=== PATIENT | female | born 1945 | race Caucasian/White ===

== ENCOUNTER 2022-03-26 18:25 | Emergency (ER) | payer MEDICARE ==
[2022-03-26 19:50] VITALS: O2SAT 97
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
[2022-03-26 21:04] VITALS: BP 147/87; PULSE 74
== END 2022-03-26 21:03 | disposition home or self-care (01) ==
LOC: ED 18:25
DX: K94.19 Other complications of enterostomy (principal); R21 Rash and other nonspecific skin eruption; E78.5 Hyperlipidemia, unspecified; I10 Essential (primary) hypertension; Z28.310 Unvaccinated for COVID-19
CPT/HCPCS: 99282

== ENCOUNTER 2022-03-27 19:08 | Emergency (ER) | payer MEDICARE ==
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
[2022-03-27] MEDS ORDERED: KEFLEX 500 MG PO ONE (20:21)
[2022-03-27] MEDS ORDERED: KEFLEX 500 MG ONE (20:40)
[2022-03-27 21:05] VITALS: BP 142/76; PULSE 89; O2SAT 94
== END 2022-03-27 21:09 | disposition home or self-care (01) ==
LOC: ED 19:08
DX: K94.09 Other complications of colostomy (principal); L30.8 Other specified dermatitis; E78.5 Hyperlipidemia, unspecified; I10 Essential (primary) hypertension; Z28.310 Unvaccinated for COVID-19
CPT/HCPCS: 99282; A9270-GY

== ENCOUNTER 2022-07-10 17:37 | Emergency (ER) | payer MEDICARE ==
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
[2022-07-10 19:22] VITALS: BP 155/129; PULSE 87; O2SAT 96
[2022-07-10] MEDS ORDERED: ENOXAPARIN SODIUM SQ STA (19:32)
[2022-07-10] MEDS ORDERED: ROCEPHIN 1 Gm-D5w 50 ml Bag** 1 G/50 ML IVPB IV STA (19:32)
[2022-07-10] MEDS ORDERED: ENOXAPARIN SODIUM SQ ONE (19:40)
[2022-07-10] MEDS ORDERED: ROCEPHIN 1 Gm-D5w 50 ml Bag** 1 G/50 ML IVPB IV ONE (19:40)
[2022-07-10 20:06] LABS: Absolute Neutrophil Ct (ANC) 2.74 x10^3/uL (1.4-6.9); BASOPHIL % 0.5 % (0.0-0.4); Basophil (Absolute #) 0.02 x10^3/uL (0-0.4); Eosinophil % 2.3 % (0.00-5.0); Eosinophil (Absolute #) 0.09 x10^3/uL (0-0.5); Hematocrit 33.5 % (35-47); Hemoglobin 10.3 g/dL (12.0-16.0); IMMATURE GRAN # 0.01 x10^3u/L (0.00-0.03); IMMATURE GRAN % 0.3 % (0.00-0.4); Lymphocyte (Absolute #) 0.57 x10^3/uL (1.0-4.6); Lymphocytes % 14.8 % (24.0-44.0); Mean Cell Volume 90.1 fL (78-100); Mean Corpuscular Hemoglobin 27.7 pg (26-32); Mean Corpuscular Hgb Concent. 30.7 g/dL (32-36); Mean Platelet Volume 10.8 fL (7.5-11.0); Monocyte (Absolute #) 0.43 x10^3/uL (0.0-1.3); Monocytes % 11.1 % (0.0-12.0); Platelet Count 226 x10^3/uL (150-450); Red Blood Count 3.72 x10^6/uL (4.1-5.4); Red Cell Distribution Width 14.6 % (11.5-14.0); White Blood Count 3.9 x10^3/uL (4.0-10.5)
[2022-07-10 20:22] LABS: INR 0.89 (0.8-3.0); PROTIME 9.8 SECONDS (9.4-12.5)
[2022-07-10 20:23] LABS: ANION GAP 13.5 MEQ/L (5-15); BILIRUBIN,TOTAL 0.3 mg/dL (0.2-1.3); Calcium 8.7 mg/dL (8.4-10.2); Creatinine 1 1.04 mg/dL (0.52-1.04); EST GLOMERULAR FILTRATION RATE 54.8 ML/MIN; Total Protein 7.4 g/dL (6.3-8.2)
[2022-07-10 21:59] LABS: Slide Review 1 YES
--- NOTE | 2022-07-11 09:11 | XRAY ---
Indication: Swelling, left greater than right. Two-dimensional sonogram and color Doppler imaging of the major venous vessels of left and right leg performed. Comparison: None Left leg demonstrates nonoccluding thrombi in the mid to distal femoral and popliteal veins. Remaining left and right leg deep venous vessels are negative for thrombosis including greater saphenous veins. Patent veins demonstrate normal compressibility and normal venous waveforms. Impression: Nonoccluding DVT left femoral and popliteal veins. Right leg negative for DVT. Comment: Preliminary report was given.
== END 2022-07-10 20:57 | disposition home or self-care (01) ==
LOC: ED 17:37
DX: I82.412 Acute embolism and thrombosis of left femoral vein (principal); L03.116 Cellulitis of left lower limb; L03.115 Cellulitis of right lower limb; R60.0 Localized edema; E78.5 Hyperlipidemia, unspecified; I10 Essential (primary) hypertension; Z79.891 Long term (current) use of opiate analgesic; Z79.01 Long term (current) use of anticoagulants; Z79.899 Other long term (current) drug therapy; Z28.310 Unvaccinated for COVID-19
CPT/HCPCS: 36000; 36415; 80053; 83605; 85025; 85610; 87040; 93970; 96365; 96372; 99284; J0696; J1650

== ENCOUNTER 2023-02-22 00:54 | Emergency (ER) | payer MEDICARE ==
[2023-02-22 01:12] VITALS: RESP 18; TEMP 98.4
[2023-02-22] MEDS ORDERED: NORCO 5/325 MG PO ONE (01:16)
[2023-02-22] MEDS ORDERED: NORCO 5/325 MG ONE (01:26)
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
[2023-02-22 03:05] VITALS: BP 116/74; PULSE 71; O2SAT 98
--- NOTE | 2023-02-22 08:45 | XRAY ---
Indication: Pain. No known injury. Comparison: None 2 view right femur demonstrates osteopenia, moderate hip/knee degenerative arthropathy, moderate degenerative changes visualized lower lumbar spine, right lower quadrant colostomy, and heavy scattered vascular calcifications. No other bony, articular, or soft tissue abnormalities.
--- NOTE | 2023-02-22 08:45 | XRAY ---
Indication: Pain. No known injury. Comparison: None 3 view right knee demonstrates osteopenia, mild/moderate tricompartmental degenerative changes greatest patellofemoral compartment, small quadriceps tendon ossifications either degenerative versus old injury/inflammation, small posterior fabella, and moderate scattered vascular calcifications. No other bony, articular, or soft tissue abnormalities.
--- NOTE | 2023-02-22 08:46 | XRAY ---
Indication: Pain. No known injury. Comparison: None 2 view right lower leg demonstrates osteopenia, mild/moderate knee degenerative arthropathy, small plantar heel spur, and scattered vascular calcifications. No other bony, articular, or soft tissue abnormalities.
== END 2023-02-22 03:05 | disposition home or self-care (01) ==
LOC: ED 00:54
DX: M17.11 Unilateral primary osteoarthritis, right knee (principal); M25.561 Pain in right knee; E78.5 Hyperlipidemia, unspecified; I10 Essential (primary) hypertension; Z79.891 Long term (current) use of opiate analgesic; Z79.01 Long term (current) use of anticoagulants; Z79.899 Other long term (current) drug therapy; Z28.310 Unvaccinated for COVID-19
CPT/HCPCS: 73552; 73562; 73590; 99283; A9270-GY

== ENCOUNTER 2023-06-16 06:56 | Observation (INO) | payer MEDICARE ==
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
[2023-06-16 07:28] LABS: Absolute Neutrophil Ct (ANC) 4.11 x10^3/uL (1.4-6.9); BASOPHIL % 0.5 % (0.0-0.4); Basophil (Absolute #) 0.03 x10^3/uL (0-0.4); Eosinophil % 2.5 % (0.00-5.0); Eosinophil (Absolute #) 0.14 x10^3/uL (0-0.5); Hematocrit 32.8 % (35-47); Hemoglobin 9.5 g/dL (12.0-16.0); IMMATURE GRAN # 0.02 x10^3u/L (0.00-0.03); IMMATURE GRAN % 0.4 % (0.00-0.4); Lymphocyte (Absolute #) 0.72 x10^3/uL (1.0-4.6); Mean Cell Volume 92.7 fL (78-100); Mean Corpuscular Hemoglobin 26.8 pg (26-32); Mean Platelet Volume 11.3 fL (7.5-11.0); Monocyte (Absolute #) 0.53 x10^3/uL (0.0-1.3); Monocytes % 9.5 % (0.0-12.0); Neutrophil % 74.1 % (36.0-66.0); Platelet Count 160 x10^3/uL (150-450); Red Blood Count 3.54 x10^6/uL (4.1-5.4); Red Cell Distribution Width 13.4 % (11.5-14.0); White Blood Count 5.6 x10^3/uL (4.0-10.5)
[2023-06-16 07:51] LABS: ALBUMIN 4.3 g/dL (3.5-5.0); BILIRUBIN,TOTAL 0.6 mg/dL (0.2-1.3); Calcium 9.2 mg/dL (8.4-10.2); Creatinine 1 1.45 mg/dL (0.52-1.04); EST GLOMERULAR FILTRATION RATE 37.2 ML/MIN; Potassium 4.3 mmol/L (3.5-5.1)
--- NOTE | 2023-06-16 08:42 | XRAY ---
Indication: Short of breath and headache. Comparison: None Portable apical lordotic chest underinflated and clear with incidental tiny right base calcified granuloma. Heart enlarged with tortuous descending aorta and left dual-lead pacemaker. Bony thorax intact with osteopenia and mild degenerative changes. Impression: Nonacute underinflated chest with cardiomegaly and old granulomatous disease. Negative for acute pneumonic process or CHF.
[2023-06-16 10:59] LABS: Appearance Clear (Clear); Bacteria None Seen /HPF (None Seen); Bilirubin Negative (Negative); Blood Negative (Negative); Epithelial Cells None Seen /HPF (None Seen); Glucose, Urine Negative (Negative); Ketones Negative (Negative); Leukocyte Esterase Negative (Negative); Nitrite Negative (Negative); Protein,Urine Dip Negative (Negative); RBC 0-2 /HPF (0-5); Urobilinogen 0.2 mg/dL (0.2); WBC 0-2 /HPF (0-5)
[2023-06-16 11:03] LABS: ADD URINE CULTURE? NO (NO)
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
[2023-06-16 13:57] LABS: RETICULOCYTE % 1.8 % (0.6-2.6); RETICULOCYTE HEMOGLOBIN 26.4 pg (28-38)
[2023-06-16 14:14] LABS: Iron 46 ug/dL (37-170); Iron Saturation 10 % (20-39); TIBC 451 ug/dL (265-462)
[2023-06-16] MEDS ORDERED: Lomotil PO PRN (14:16)
[2023-06-16] MEDS: REQUIP 2MG TAB PO SCH (15:10)
[2023-06-16] MEDS: Dilaudid 4 MG Tab PO SCH (15:11)
[2023-06-16] MEDS: Neurontin PO SCH (15:12)
[2023-06-16] MEDS: Toprol-Xl 25MG Tablets PO SCH (15:13)
[2023-06-16] MEDS: SYNTHROID 75 MCG PO SCH (15:14)
[2023-06-16] MEDS: Protonix 40MG Tablet PO SCH (15:16)
[2023-06-16] MEDS: Imdur 30 MG PO SCH (15:16)
[2023-06-16] MEDS: AMITRIPTYLINE 25 MG TABLET PO SCH (15:16)
[2023-06-16] MEDS: MYRBETRIQ PO SCH (15:17)
[2023-06-16] MEDS: Lasix 40 MG PO SCH (15:17)
[2023-06-16] MEDS: Flonase NASAL NS SCH (15:22)
[2023-06-16] MEDS: Klor Con PO SCH (15:22)
[2023-06-16] MEDS: ROCEPHIN 1 GM / 100 ML NaCl 1 GM/100 ML IVPB IV SCH (15:23)
--- NOTE | 2023-06-16 15:25 | XRAY ---
Indication: Cellulitis. Elevated d-dimer. Two-dimensional sonogram and color Doppler imaging major venous vessels left and right leg performed. Comparison: July 10, 2022 Previous left leg DVT has cleared. No thrombus seen in the examined deep venous vessels of the left and right leg including greater saphenous vein. Veins demonstrate normal compressibility. Venous waveforms are normal with and without augmentation. Impression: Left and right legs negative for DVT.
[2023-06-16] MEDS: ceLEXa 20 MG PO SCH ×2 (16:48→21:04)
[2023-06-16] MEDS: XARELTO 10 MG TABLET PO SCH (18:48)
[2023-06-16 19:30] LABS: Ferritin 12.6 ng/mL (11.1-264); Folate (Folic Acid) 8.62 ng/mL (2.76 - >20)
[2023-06-16] MEDS: Zocor 10MG PO SCH (21:04)
[2023-06-16] MEDS: Pepcid 20 MG PO SCH (21:04)
[2023-06-17 05:45] LABS: Hematocrit 31.7 % (35-47); Hemoglobin 9.3 g/dL (12.0-16.0); Mean Cell Volume 92.2 fL (78-100); Mean Corpuscular Hgb Concent. 29.3 g/dL (32-36); Mean Platelet Volume 10.9 fL (7.5-11.0); Platelet Count 168 x10^3/uL (150-450); Red Blood Count 3.44 x10^6/uL (4.1-5.4); Red Cell Distribution Width 13.7 % (11.5-14.0); White Blood Count 5.2 x10^3/uL (4.0-10.5)
[2023-06-17 05:56] LABS: ALBUMIN 4.1 g/dL (3.5-5.0); BILIRUBIN,TOTAL 0.5 mg/dL (0.2-1.3); Creatinine 1 1.24 mg/dL (0.52-1.04); EST GLOMERULAR FILTRATION RATE 44.8 ML/MIN; Potassium 4.5 mmol/L (3.5-5.1); Total Protein 7.6 g/dL (6.3-8.2)
[2023-06-17] MEDS: FEOSOL 325 MG PO SCH (10:43)
[2023-06-17] MEDS: TYLENOL 325 MG PO PRN (11:16)
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
[2023-06-17] MEDS: Cyanocobalamin B-12 1000 MCG/ML IM SCH (14:28)
[2023-06-18 05:28] LABS: Hematocrit 30.8 % (35-47); Hemoglobin 8.8 g/dL (12.0-16.0); Mean Cell Volume 93.6 fL (78-100); Mean Corpuscular Hemoglobin 26.7 pg (26-32); Mean Corpuscular Hgb Concent. 28.6 g/dL (32-36); Mean Platelet Volume 11.9 fL (7.5-11.0); Platelet Count 160 x10^3/uL (150-450); Red Blood Count 3.29 x10^6/uL (4.1-5.4); Red Cell Distribution Width 13.9 % (11.5-14.0); White Blood Count 6.1 x10^3/uL (4.0-10.5)
[2023-06-18 05:55] LABS: ANION GAP 9.7 MEQ/L (5-15); BILIRUBIN,TOTAL 0.3 mg/dL (0.2-1.3); Calcium 8.6 mg/dL (8.4-10.2); Creatinine 1 1.21 mg/dL (0.52-1.04); EST GLOMERULAR FILTRATION RATE 46.2 ML/MIN; Potassium 4.1 mmol/L (3.5-5.1); Total Protein 7.4 g/dL (6.3-8.2)
[2023-06-18 07:52] VITALS: O2SAT 98
[2023-06-18 07:53] LABS: Slide Review YES
[2023-06-18 12:00] VITALS: BP 125/88; PULSE 88; RESP 17; TEMP 97.5
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
--- NOTE | 2023-06-19 14:08 | ECHO ---
DATE OF PROCEDURE: 06/16/2023 CLINICAL INFORMATION: Chest pain. The M-mode 2D, and Doppler echocardiogram including color flow Doppler is technically difficult. The heart rate is 83 beats/minute. The left ventricle is mildly dilated. The wall thickness is at the upper limits of normal. There is normal contractility of the left ventricle. The ejection fraction is estimated to be 55 to 60%. The right ventricle is grossly normal. The left atrium is borderline dilated. The interatrial septum is intact. The right atrium is normal. The aortic valve is not well visualized. The mitral valve is normal. The tricuspid valve is normal. The pulmonic valve is not well visualized. The aortic root is normal. There is no pericardial effusion present. IMPRESSION: 1) NORMAL CONTRACTILITY OF THE LEFT VENTRICLE. 2) BORDERLINE CONCENTRIC LEFT VENTRICULAR HYPERTROPHY. 3) BORDERLINE LEFT ATRIAL DILATATION.
== END 2023-06-18 15:10 | disposition home or self-care (01) ==
LOC: ED 06:56 → MED SURG 13:00
PROVIDERS: ADMIT Internal Medicine; ATTEND Internal Medicine
DX: R07.9 Chest pain, unspecified (principal); I12.9 Hypertensive chronic kidney disease with stage 1 through stage 4 chronic kidney disease, or unspecified chronic kidney disease; N18.9 Chronic kidney disease, unspecified; I50.9 Heart failure, unspecified; N17.9 Acute kidney failure, unspecified; L03.115 Cellulitis of right lower limb; L03.116 Cellulitis of left lower limb; D64.9 Anemia, unspecified; E78.5 Hyperlipidemia, unspecified; E03.9 Hypothyroidism, unspecified; G25.81 Restless legs syndrome; I69.30 Unspecified sequelae of cerebral infarction; F32.A Depression, unspecified; I25.10 Atherosclerotic heart disease of native coronary artery without angina pectoris; E66.01 Morbid (severe) obesity due to excess calories; Z68.41 Body mass index [BMI] 40.0-44.9, adult; D50.9 Iron deficiency anemia, unspecified; D51.9 Vitamin B12 deficiency anemia, unspecified; R60.0 Localized edema; Z79.01 Long term (current) use of anticoagulants; Z79.899 Other long term (current) drug therapy; Z20.828 Contact with and (suspected) exposure to other viral communicable diseases
CPT/HCPCS: 29580; 36000; 36415; 71045; 80053; 81001; 82607; 82728; 82746; 83540; 83550; 83880; 84484; 85025; 85027; 85045; 85046; 85379; 87040; 93005; 93041; 93268; 93306; 93970; 94760; 97161; 99285; G0378; Q3014; J0696; J3420; A9270-GY

== ENCOUNTER 2023-10-26 11:21 | Emergency (ER) | payer MEDICARE ==
[2023-10-26 11:51] VITALS: TEMP 97
[2023-10-26 12:10] LABS: Absolute Neutrophil Ct (ANC) 3.35 x10^3/uL (1.56-6.13); BASOPHIL % 0.6 % (0.1-1.2); Basophil (Absolute #) 0.03 x10^3/uL (0.01-0.08); Eosinophil % 2.4 % (0.7-5.8); Eosinophil (Absolute #) 0.11 x10^3/uL (0.04-0.36); Hematocrit 33.6 % (34.1-44.9); Hemoglobin 9.4 g/dL (11.2-15.7); IMMATURE GRAN # 0.06 x10^3u/L (0.001-0.031); IMMATURE GRAN % 1.3 % (0.001-0.429); Lymphocyte (Absolute #) 0.54 x10^3/uL (1.18-3.74); Lymphocytes % 11.7 % (19.3-51.7); Mean Cell Volume 87.5 fL (79.4-94.8); Mean Corpuscular Hemoglobin 24.5 pg (25.6-32.2); Mean Platelet Volume 10.8 fL (9.4-12.3); Monocyte (Absolute #) 0.53 x10^3/uL (0.24-0.86); Monocytes % 11.5 % (4.7-12.5); NUCLEATED RBC # 0.02 x10^3u/L (0.00-0.012); NUCLEATED RBC % 0.4 % (0.00-0.2); Neutrophil % 72.5 % (34.0-71.1); Platelet Count 124 x10^3/uL (182-369); Red Blood Count 3.84 x10^6/uL (3.93-5.22); Red Cell Distribution Width 19.1 % (11.7-14.4); White Blood Count 4.6 x10^3/uL (3.98-10.04)
[2023-10-26 12:23] LABS: ALBUMIN 3.9 g/dL (3.5-5.0); BILIRUBIN,TOTAL 0.4 mg/dL (0.2-1.3); Creatinine 1 2.66 mg/dL (0.52-1.04); EST GLOMERULAR FILTRATION RATE 17.9 ML/MIN; Potassium 4.5 mmol/L (3.5-5.1); Total Protein 7.8 g/dL (6.3-8.2)
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
[2023-10-26 12:26] LABS: PROTIME 10.9 SECONDS (9.4-12.5)
--- NOTE | 2023-10-26 12:54 | XRAY ---
Indication: Lethargy. Comparison: June 16, 2023 Portable chest again demonstrates normal heart and lungs with incidental left pacemaker. Bony thorax intact again with osteopenia and mild degenerative changes. No new/acute findings.
[2023-10-26 13:04] LABS: Appearance CLEAR (CLEAR); Bilirubin NEGATIVE (NEGATIVE); Glucose NEGATIVE (NEGATIVE)
[2023-10-26 13:05] LABS: ADD URINE CULTURE? ORDERED SEPARATELY (NO); Ketones NEGATIVE (NEGATIVE); Nitrite NEGATIVE (NEGATIVE); Protein,Urine Dip NEGATIVE (Negative); RBC SMALL Ery/ul (0-5); Urobilinogen 0.2 mg/dL (0-1)
[2023-10-26 13:28] VITALS: RESP 15
[2023-10-26 13:28] LABS: Bacteria Few /HPF (None Seen); Epithelial Cells Few /HPF (None Seen); RBC 0-2 /HPF (0-5)
[2023-10-26] MEDS ORDERED: Sodium Chloride 0.9% 1000 ML 1,000 ML ONE (13:43)
[2023-10-26 13:44] LABS: Slide Review 1 YES
[2023-10-26] MEDS: Sodium Chloride 0.9% 1000 ML 1,000 ML IV STA (13:45)
[2023-10-26 14:34] VITALS: BP 111/56; PULSE 80
[2023-10-26 15:08] VITALS: O2SAT 95
== END 2023-10-26 15:23 | disposition home or self-care (01) ==
LOC: ED 11:21
DX: E86.0 Dehydration (principal); R53.83 Other fatigue; R40.0 Somnolence; E78.5 Hyperlipidemia, unspecified; I11.0 Hypertensive heart disease with heart failure; I50.9 Heart failure, unspecified; Z79.899 Other long term (current) drug therapy
CPT/HCPCS: 36415; 71045; 80053; 81015; 83605; 83880; 84439; 84443; 84484; 85025; 85610; 85730; 87077; 87086; 87186; 96360; 99284

== ENCOUNTER 2023-12-13 12:34 | Observation (INO) | payer MEDICARE, OTHER ==
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
[2023-12-13] MEDS ORDERED: Sterile H2O 10 ml IJ ONE (12:45)
[2023-12-13] MEDS ORDERED: solu-MEDROL ONE (12:46)
[2023-12-13 12:51] LABS: Absolute Neutrophil Ct (ANC) 3.39 x10^3/uL (1.56-6.13); BASOPHIL % 0.9 % (0.1-1.2); Basophil (Absolute #) 0.04 x10^3/uL (0.01-0.08); Eosinophil % 2.6 % (0.7-5.8); Eosinophil (Absolute #) 0.12 x10^3/uL (0.04-0.36); Hemoglobin 7.4 g/dL (11.2-15.7); IMMATURE GRAN # 0.02 x10^3u/L (0.001-0.031); IMMATURE GRAN % 0.4 % (0.001-0.429); Lymphocyte (Absolute #) 0.77 x10^3/uL (1.18-3.74); Lymphocytes % 16.7 % (19.3-51.7); Mean Cell Volume 88.8 fL (79.4-94.8); Mean Corpuscular Hemoglobin 24.3 pg (25.6-32.2); Mean Corpuscular Hgb Concent. 27.4 g/dL (32.2-35.5); Mean Platelet Volume 11.8 fL (9.4-12.3); Monocyte (Absolute #) 0.28 x10^3/uL (0.24-0.86); Monocytes % 6.1 % (4.7-12.5); Neutrophil % 73.3 % (34.0-71.1); Platelet Count 249 x10^3/uL (182-369); Red Blood Count 3.04 x10^6/uL (3.93-5.22); Red Cell Distribution Width 17.2 % (11.7-14.4); White Blood Count 4.6 x10^3/uL (3.98-10.04)
[2023-12-13] MEDS ORDERED: DUONEB 0.5-3 MG/3 ml Neb IH ONE ×2 (12:59→20:04)
[2023-12-13] MEDS: solu-MEDROL 125 MG, Sterile H2O 10 ml 2 ML IV ONE (13:02)
[2023-12-13] MEDS: DUONEB 0.5-3 MG/3 ml Neb IH ONE (13:13)
[2023-12-13 13:20] LABS: ALBUMIN 3.5 g/dL (3.5-5.0); ANION GAP 13.1 MEQ/L (5-15); BILIRUBIN,TOTAL 0.2 mg/dL (0.2-1.3); Calcium 8.8 mg/dL (8.4-10.2); Creatinine 1 2.54 mg/dL (0.52-1.04); MAGNESIUM 2.1 mg/dL (1.6-2.3); Potassium 5.2 mmol/L (3.5-5.1); Total Protein 6.6 g/dL (6.3-8.2)
[2023-12-13 13:22] LABS: NT PRO BNPII 444 pg/mL (<300); TROPONIN < 0.012 ng/mL (0.000-0.033)
[2023-12-13 13:23] LABS: VBG BASE EXCESS -4.2 (-2.0-2.0); VBG CARBOXYHEMOGLOBIN 1.7 % T HGB (0.0-6.9); VBG HCO3- 22.1 meq/L (22-28); VBG O2 SATURATION 49.8 (95-100); VBG POTASSIUM 4.9 (3.5-5.1); VBG pH 7.29 (7.32-7.42)
[2023-12-13 13:24] LABS: VBG HEMOGLOBIN 7.5
--- NOTE | 2023-12-13 13:27 | XRAY ---
CLINICAL HISTORY: headache, LUE tingling COMPARISON: TECHNIQUE: An axial non-contrast CT scan of the brain was performed from the skull base to the high parietal region. One of the following dose reduction techniques was utilized for this exam: Automated exposure control, adjustment of the mA and kV according to patient size, and use of iterative reconstruction. CTDI: 53.9 , DLP: 1070 mGy.cm FINDINGS: Brain Parenchyma: Chronic/lacunar infarcts were seen in the capsuloganglionic region on both sides, the left thalamic region, and the head of the caudate nucleus on the right side. Age-matched cerebral atrophic changes as evidenced by the prominence of the cortical sulcal and gyral pattern. Periventricular white matter hypodensities in keeping with chronic microvascular ischemic changes. Atheromatous calcifications of internal carotid arteries on both sides at cavernous segments and vertebral arteries Ventricular System: Ventricles are normal in size and configuration. No evidence of hydrocephalus or ventricular enlargement. Subarachnoid Spaces: No evidence of subarachnoid hemorrhage or extra-axial fluid collections. Cerebellum and Brainstem: Normal size and signal. No masses, lesions, or areas of abnormal signal. Orbits: Normal appearance of the globes, optic nerves, and extraocular muscles. No evidence of orbital masses or abnormal signals. Sinuses: Clear paranasal sinuses. No evidence of sinusitis or mucosal thickening. Deviated nasal septum towards right side Mastoid Air Cells: Clear mastoid air cells. No evidence of mastoiditis. Skull and Meninges: Normal skull morphology. No evidence of meningeal thickening. IMPRESSION: Chronic/lacunar infarcts were seen in the capsuloganglionic region on both sides, the left thalamic region, and the region of the head of the caudate nucleus on the right side. Age-matched cerebral atrophic and chronic microvascular ischemic changes. No acute hemorrhagic pathology. Early changes of acute ischemic infarct may sometimes not be detected on a CT scan. If clinically needed, MRI with diffusion-weighted imaging is recommended for further evaluation. Electronically Signed by: Carlito Neri MD. (12/13/2023 13:23:00 EDT)
[2023-12-13] MEDS ORDERED: Lasix 40 MG/4 ML ONE (13:30)
[2023-12-13] MEDS: Lasix 40 MG/4 ML IV ONE (13:31)
[2023-12-13 14:28] LABS: ABO TYPING A; Antibody Screen NEGATIVE (NEGATIVE); RH TYPING POSITIVE
[2023-12-13 14:30] LABS: CROSS MATCH (PRBC) COMPATIBLE (COMPATIBLE)
[2023-12-13] MEDS ORDERED: Sodium Chloride 0.9% 250 ML 250 ML IV ONE (14:46)
[2023-12-13] MEDS ORDERED: BENADRYL 50 MG/ML ONE (14:55)
--- NOTE | 2023-12-13 14:57 | XRAY ---
CLINICAL HISTORY: chest pain, sob COMPARISON: None. TECHNIQUE: Contiguous axial CT images of the chest were acquired without administration of intravenous contrast. Coronal and sagittal reconstructions were obtained. One of the following dose reduction techniques were utilized for this exam: Automated exposure control, adjustment of the mA and/or kV according to patient size, use of iterative reconstruction. FINDINGS: Lungs: No evidence of pulmonary mass, consolidation, or collapse. Calcified nodule seen in the right lower lobe measuring about 4 mm No evidence of interstitial lung disease or emphysema. Few pulmonary air cysts seen in the right upper lobe. Prominence of pulmonary vasculature mainly in lower lobes probably due to pulmonary vascular congestion. Ground glass attenuation seen in both lower lobes. Interlobular septal thickening seen probably related to evolving interstitial edema. Bilateral small pleural effusion, more on left side Mediastinum: The mediastinum is normal in size and contour. No mediastinal mass or abnormal lymphadenopathy. Mild cardiomegaly. Coronary artery calcifications noted. The ascending aorta is mildly dilated with a maximum diameter measuring about 42 mm. Calcification of the aortic arch and thoracic aorta noted Hilar Structures: The hilar structures appear normal without enlargement or abnormality. Trachea and Main Bronchi: The trachea and main bronchi are patent without evidence of obstruction or abnormality. Thyroid: Suggestion of enlarged thyroid lobes showing hypodense nodules. Needs ultrasound correlation Chest Wall: The chest wall is unremarkable with no evidence of soft tissue or bony abnormalities. Upper Abdomen: Multiple Right renal cysts. Tiny calcific foci in the spleen representing calcified granulomas Bones: Multilevel spondylodegenerative changes seen in the visualized spine, no evidence of fracture or lytic/sclerotic lesions.Degenerative changes seen in the visualized left glenohumeral joint IMPRESSION: 1. No pulmonary mass, major collapse or consolidative changes. 2. Mild cardiomegaly with pulmonary vascular congestion. Clinical correlation is suggested. 3. Interlobular septal thickening in lower lobes probably related to evolving interstitial edema. 4. Suggestion of bilateral small pleural effusion, more on left side. 5. The ascending aorta is mildly dilated with maximum diameter measuring about 42 mm. 6. Suggestion of enlarged thyroid lobes showing hypodense nodules. Needs ultrasound correlation. Electronically Signed by: Carlito Neri MD. (12/13/2023 14:52:48 EDT)
[2023-12-13] MEDS: BENADRYL 50 MG/ML IV ONE (14:58)
[2023-12-13 15:00] LABS: Appearance Clear (Clear); Bacteria None Seen /HPF (None Seen); Bilirubin Negative (Negative); Blood Negative (Negative); Epithelial Cells None Seen /HPF (None Seen); Glucose, Urine Negative (Negative); Hyaline Casts NONE SEEN /LPF (0-2); Ketones Negative (Negative); Leukocyte Esterase Trace (Negative); Nitrite Negative (Negative); Protein,Urine Dip Negative (Negative); RBC 0-2 /HPF (0-5); Urobilinogen 0.2 mg/dL (0.2); WBC 0-2 /HPF (0-5)
[2023-12-13 15:06] LABS: ADD URINE CULTURE? NO (NO)
[2023-12-13 15:16] LABS: Slide Review 1 YES
--- NOTE | 2023-12-13 17:45 | PCM.HP ---
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 12/13/23 Range/Units 12:45 12:45 12:45 WBC 4.6 (3.98-10.04) x10^3/uL RBC 3.04 L (3.93-5.22) x10^6/uL Hgb 7.4 L (11.2-15.7) g/dL Hct 27.0 L (34.1-44.9) % MCV 88.8 (79.4-94.8) fL MCH 24.3 L (25.6-32.2) pg MCHC 27.4 L (32.2-35.5) g/dL RDW 17.2 H (11.7-14.4) % Plt Count 249 (182-369) x10^3/uL MPV 11.8 (9.4-12.3) fL Gran % 73.3 H (34.0-71.1) % Immature Gran % (Auto) 0.4 (0.001-0.429) % Nucleat RBC Rel Count 0.0 (0.00-0.2) % Eos # (Auto) 0.12 (0.04-0.36) x10^3/uL Immature Gran # (Auto) 0.02 (0.001-0.031) x10^3u/L Absolute Lymphs (auto) 0.77 L (1.18-3.74) x10^3/uL Absolute Monos (auto) 0.28 (0.24-0.86) x10^3/uL Absolute Nucleated RBC 0.00 (0.00-0.012) x10^3u/L Lymphocytes % 16.7 L (19.3-51.7) % Monocytes % 6.1 (4.7-12.5) % Eosinophils % 2.6 (0.7-5.8) % Basophils % 0.9 (0.1-1.2) % Absolute Granulocytes 3.39 (1.56-6.13) x10^3/uL Basophils # 0.04 (0.01-0.08) x10^3/uL D-Dimer 0.86 H* (0.0-0.50) mg/L pO2/FiO2 Ratio % VBG pH (7.32-7.42) VBG pCO2 at Pat Temp (42-55) mm/Hg VBG pO2 at Pat Temp (25-40) mm/Hg VBG HCO3 (22-28) meq/L VBG O2 Sat (David) (95-100) VBG Base Excess (-2.0-2.0) VBG Hemoglobin VBG Carboxyhemoglobin (0.0-6.9) % T HGB POC Potassium (3.5-5.1) Sodium 136 (135-145) mmol/L Potassium 5.2 H (3.5-5.1) mmol/L Chloride 106 (98-107) mmol/L Carbon Dioxide 22 (22-30) mmol/L Anion Gap 13.1 (5-15) MEQ/L BUN 32 H (7-17) mg/dL Creatinine 2.54 H (0.52-1.04) mg/dL Estimated GFR 19.0 ML/MIN Glucose 133 H (74-106) mg/dL Hemoglobin A1c (4.5-6.0) % Lactic Acid (0.4-2.0) Calcium 8.8 (8.4-10.2) mg/dL Magnesium 2.1 (1.6-2.3) mg/dL Iron (37-170) ug/dL TIBC (265-462) ug/dL Iron Saturation (20-39) % Total Bilirubin 0.20 (0.2-1.3) mg/dL AST 31 (14-36) U/L ALT 33 (0-35) U/L Alkaline Phosphatase 169 H (38-126) U/L Troponin I (0.000-0.033) ng/mL NT-Pro-B Natriuret Pep (<300) pg/mL Serum Total Protein 6.6 (6.3-8.2) g/dL Albumin 3.5 (3.5-5.0) g/dL Triglycerides 180 H (30-150) mg/dL Cholesterol 177 (50-200) mg/dL LDL Cholesterol 76 (30-100) mg/dL HDL Cholesterol 68 H (40-60) mg/dL Heart Disease Risk Ratio 3.0 TSH 3rd Generation (0.470-4.680) mIU/L Urine Color (Yellow) Urine Appearance (Clear) Urine pH (4.6-8.0) Ur Specific [place] (1.005-1.030) Urine Protein (Negative) Urine Glucose (UA) (Negative) mg/dL Urine Ketones (Negative) Urine Blood (Negative) Urine Nitrite (Negative) Urine Bilirubin (Negative) Urine Urobilinogen (0.2) mg/dL Ur Leukocyte Esterase (Negative) U Hyaline Cast (Auto) (0-2) /LPF Urine Microscopic RBC (0-5) /HPF Urine Microscopic WBC (0-5) /HPF Ur Epithelial Cells (None Seen) /HPF Urine Bacteria (None Seen) /HPF Urine Culture Reflexed (NO) Slides for Path Review YES ABO Group Rh Factor Antibody Screen (NEGATIVE) Crossmatch (COMPATIBLE) 12/13/23 12/13/23 12/13/23 Range/Units 12:45 12:45 12:45 WBC (3.98-10.04) x10^3/uL RBC (3.93-5.22) x10^6/uL Hgb (11.2-15.7) g/dL Hct (34.1-44.9) % MCV (79.4-94.8) fL MCH (25.6-32.2) pg MCHC (32.2-35.5) g/dL RDW (11.7-14.4) % Plt Count (182-369) x10^3/uL MPV (9.4-12.3) fL Gran % (34.0-71.1) % Immature Gran % (Auto) (0.001-0.429) % Nucleat RBC Rel Count (0.00-0.2) % Eos # (Auto) (0.04-0.36) x10^3/uL Immature Gran # (Auto) (0.001-0.031) x10^3u/L Absolute Lymphs (auto) (1.18-3.74) x10^3/uL Absolute Monos (auto) (0.24-0.86) x10^3/uL Absolute Nucleated RBC (0.00-0.012) x10^3u/L Lymphocytes % (19.3-51.7) % Monocytes % (4.7-12.5) % Eosinophils % (0.7-5.8) % Basophils % (0.1-1.2) % Absolute Granulocytes (1.56-6.13) x10^3/uL Basophils # (0.01-0.08) x10^3/uL D-Dimer (0.0-0.50) mg/L pO2/FiO2 Ratio % VBG pH (7.32-7.42) VBG pCO2 at Pat Temp (42-55) mm/Hg VBG pO2 at Pat Temp (25-40) mm/Hg VBG HCO3 (22-28) meq/L VBG O2 Sat (David) (95-100) VBG Base Excess (-2.0-2.0) VBG Hemoglobin VBG Carboxyhemoglobin (0.0-6.9) % T HGB POC Potassium (3.5-5.1) Sodium (135-145) mmol/L Potassium (3.5-5.1) mmol/L Chloride (98-107) mmol/L Carbon Dioxide (22-30) mmol/L Anion Gap (5-15) MEQ/L BUN (7-17) mg/dL Creatinine (0.52-1.04) mg/dL Estimated GFR ML/MIN Glucose (74-106) mg/dL Hemoglobin A1c 5.02 (4.5-6.0) % Lactic Acid (0.4-2.0) Calcium (8.4-10.2) mg/dL Magnesium (1.6-2.3) mg/dL Iron (37-170) ug/dL TIBC (265-462) ug/dL Iron Saturation (20-39) % Total Bilirubin (0.2-1.3) mg/dL AST (14-36) U/L ALT (0-35) U/L Alkaline Phosphatase (38-126) U/L Troponin I < 0.012 (0.000-0.033) ng/mL NT-Pro-B Natriuret Pep 444 (<300) pg/mL Serum Total Protein (6.3-8.2) g/dL Albumin (3.5-5.0) g/dL Triglycerides (30-150) mg/dL Cholesterol (50-200) mg/dL LDL Cholesterol (30-100) mg/dL HDL Cholesterol (40-60) mg/dL Heart Disease Risk Ratio TSH 3rd Generation < 0.015 L (0.470-4.680) mIU/L Urine Color (Yellow) Urine Appearance (Clear) Urine pH (4.6-8.0) Ur Specific [place] (1.005-1.030) Urine Protein (Negative) Urine Glucose (UA) (Negative) mg/dL Urine Ketones (Negative) Urine Blood (Negative) Urine Nitrite (Negative) Urine Bilirubin (Negative) Urine Urobilinogen (0.2) mg/dL Ur Leukocyte Esterase (Negative) U Hyaline Cast (Auto) (0-2) /LPF Urine Microscopic RBC (0-5) /HPF Urine Microscopic WBC (0-5) /HPF Ur Epithelial Cells (None Seen) /HPF Urine Bacteria (None Seen) /HPF Urine Culture Reflexed (NO) Slides for Path Review ABO Group Rh Factor Antibody Screen (NEGATIVE) Crossmatch (COMPATIBLE) 12/13/23 12/13/23 12/13/23 Range/Units 13:18 13:18 13:22 WBC (3.98-10.04) x10^3/uL RBC (3.93-5.22) x10^6/uL Hgb (11.2-15.7) g/dL Hct (34.1-44.9) % MCV (79.4-94.8) fL MCH (25.6-32.2) pg MCHC (32.2-35.5) g/dL RDW (11.7-14.4) % Plt Count (182-369) x10^3/uL MPV (9.4-12.3) fL Gran % (34.0-71.1) % Immature Gran % (Auto) (0.001-0.429) % Nucleat RBC Rel Count (0.00-0.2) % Eos # (Auto) (0.04-0.36) x10^3/uL Immature Gran # (Auto) (0.001-0.031) x10^3u/L Absolute Lymphs (auto) (1.18-3.74) x10^3/uL Absolute Monos (auto) (0.24-0.86) x10^3/uL Absolute Nucleated RBC (0.00-0.012) x10^3u/L Lymphocytes % (19.3-51.7) % Monocytes % (4.7-12.5) % Eosinophils % (0.7-5.8) % Basophils % (0.1-1.2) % Absolute Granulocytes (1.56-6.13) x10^3/uL Basophils # (0.01-0.08) x10^3/uL D-Dimer (0.0-0.50) mg/L pO2/FiO2 Ratio 21.0 % VBG pH 7.29 L (7.32-7.42) VBG pCO2 at Pat Temp 46 (42-55) mm/Hg VBG pO2 at Pat Temp 28 (25-40) mm/Hg VBG HCO3 22.1 (22-28) meq/L VBG O2 Sat (David) 49.8 L (95-100) VBG Base Excess -4.2 L (-2.0-2.0) VBG Hemoglobin 7.5 L* VBG Carboxyhemoglobin 1.7 (0.0-6.9) % T HGB POC Potassium 4.9 (3.5-5.1) Sodium (135-145) mmol/L Potassium (3.5-5.1) mmol/L Chloride (98-107) mmol/L Carbon Dioxide (22-30) mmol/L Anion Gap (5-15) MEQ/L BUN (7-17) mg/dL Creatinine (0.52-1.04) mg/dL Estimated GFR ML/MIN Glucose (74-106) mg/dL Hemoglobin A1c (4.5-6.0) % Lactic Acid 1.6 (0.4-2.0) Calcium (8.4-10.2) mg/dL Magnesium (1.6-2.3) mg/dL Iron (37-170) ug/dL TIBC (265-462) ug/dL Iron Saturation (20-39) % Total Bilirubin (0.2-1.3) mg/dL AST (14-36) U/L ALT (0-35) U/L Alkaline Phosphatase (38-126) U/L Troponin I (0.000-0.033) ng/mL NT-Pro-B Natriuret Pep (<300) pg/mL Serum Total Protein (6.3-8.2) g/dL Albumin (3.5-5.0) g/dL Triglycerides (30-150) mg/dL Cholesterol (50-200) mg/dL LDL Cholesterol (30-100) mg/dL HDL Cholesterol (40-60) mg/dL Heart Disease Risk Ratio TSH 3rd Generation (0.470-4.680) mIU/L Urine Color (Yellow) Urine Appearance (Clear) Urine pH (4.6-8.0) Ur Specific [place] (1.005-1.030) Urine Protein (Negative) Urine Glucose (UA) (Negative) mg/dL Urine Ketones (Negative) Urine Blood (Negative) Urine Nitrite (Negative) Urine Bilirubin (Negative) Urine Urobilinogen (0.2) mg/dL Ur Leukocyte Esterase (Negative) U Hyaline Cast (Auto) (0-2) /LPF Urine Microscopic RBC (0-5) /HPF Urine Microscopic WBC (0-5) /HPF Ur Epithelial Cells (None Seen) /HPF Urine Bacteria (None Seen) /HPF Urine Culture Reflexed (NO) Slides for Path Review ABO Group A Rh Factor POSITIVE Antibody Screen NEGATIVE (NEGATIVE) Crossmatch COMPATIBLE (COMPATIBLE) 12/13/23 12/13/23 12/13/23 Range/Units 14:49 16:00 18:33 WBC (3.98-10.04) x10^3/uL RBC (3.93-5.22) x10^6/uL Hgb (11.2-15.7) g/dL Hct (34.1-44.9) % MCV (79.4-94.8) fL MCH (25.6-32.2) pg MCHC (32.2-35.5) g/dL RDW (11.7-14.4) % Plt Count (182-369) x10^3/uL MPV (9.4-12.3) fL Gran % (34.0-71.1) % Immature Gran % (Auto) (0.001-0.429) % Nucleat RBC Rel Count (0.00-0.2) % Eos # (Auto) (0.04-0.36) x10^3/uL Immature Gran # (Auto) (0.001-0.031) x10^3u/L Absolute Lymphs (auto) (1.18-3.74) x10^3/uL Absolute Monos (auto) (0.24-0.86) x10^3/uL Absolute Nucleated RBC (0.00-0.012) x10^3u/L Lymphocytes % (19.3-51.7) % Monocytes % (4.7-12.5) % Eosinophils % (0.7-5.8) % Basophils % (0.1-1.2) % Absolute Granulocytes (1.56-6.13) x10^3/uL Basophils # (0.01-0.08) x10^3/uL D-Dimer (0.0-0.50) mg/L pO2/FiO2 Ratio % VBG pH (7.32-7.42) VBG pCO2 at Pat Temp (42-55) mm/Hg VBG pO2 at Pat Temp (25-40) mm/Hg VBG HCO3 (22-28) meq/L VBG O2 Sat (David) (95-100) VBG Base Excess (-2.0-2.0) VBG Hemoglobin VBG Carboxyhemoglobin (0.0-6.9) % T HGB POC Potassium (3.5-5.1) Sodium (135-145) mmol/L Potassium (3.5-5.1) mmol/L Chloride (98-107) mmol/L Carbon Dioxide (22-30) mmol/L Anion Gap (5-15) MEQ/L BUN (7-17) mg/dL Creatinine (0.52-1.04) mg/dL Estimated GFR ML/MIN Glucose (74-106) mg/dL Hemoglobin A1c (4.5-6.0) % Lactic Acid (0.4-2.0) Calcium (8.4-10.2) mg/dL Magnesium (1.6-2.3) mg/dL Iron 116 (37-170) ug/dL TIBC 389 (265-462) ug/dL Iron Saturation 30 (20-39) % Total Bilirubin (0.2-1.3) mg/dL AST (14-36) U/L ALT (0-35) U/L Alkaline Phosphatase (38-126) U/L Troponin I < 0.012 (0.000-0.033) ng/mL NT-Pro-B Natriuret Pep (<300) pg/mL Serum Total Protein (6.3-8.2) g/dL Albumin (3.5-5.0) g/dL Triglycerides (30-150) mg/dL Cholesterol (50-200) mg/dL LDL Cholesterol (30-100) mg/dL HDL Cholesterol (40-60) mg/dL Heart Disease Risk Ratio TSH 3rd Generation (0.470-4.680) mIU/L Urine Color Yellow (Yellow) Urine Appearance Clear (Clear) Urine pH 5.0 (4.6-8.0) Ur Specific [place] 1.010 (1.005-1.030) Urine Protein Negative (Negative) Urine Glucose (UA) Negative (Negative) mg/dL Urine Ketones Negative (Negative) Urine Blood Negative (Negative) Urine Nitrite Negative (Negative) Urine Bilirubin Negative (Negative) Urine Urobilinogen 0.2 (0.2) mg/dL Ur Leukocyte Esterase Trace A (Negative) U Hyaline Cast (Auto) NONE SEEN (0-2) /LPF Urine Microscopic RBC 0-2 (0-5) /HPF Urine Microscopic WBC 0-2 (0-5) /HPF Ur Epithelial Cells None Seen (None Seen) /HPF Urine Bacteria None Seen (None Seen) /HPF Urine Culture Reflexed NO (NO) Slides for Path Review ABO Group Rh Factor Antibody Screen (NEGATIVE) Crossmatch (COMPATIBLE) 12/13/23 12/13/23 Range/Units 18:33 18:33 WBC 4.8 (3.98-10.04) x10^3/uL RBC 3.51 L (3.93-5.22) x10^6/uL Hgb 8.9 L D (11.2-15.7) g/dL Hct 30.2 L (34.1-44.9) % MCV 86.0 (79.4-94.8) fL MCH 25.4 L (25.6-32.2) pg MCHC 29.5 L (32.2-35.5) g/dL RDW 16.7 H (11.7-14.4) % Plt Count 254 (182-369) x10^3/uL MPV 11.6 (9.4-12.3) fL Gran % (34.0-71.1) % Immature Gran % (Auto) (0.001-0.429) % Nucleat RBC Rel Count (0.00-0.2) % Eos # (Auto) (0.04-0.36) x10^3/uL Immature Gran # (Auto) (0.001-0.031) x10^3u/L Absolute Lymphs (auto) (1.18-3.74) x10^3/uL Absolute Monos (auto) (0.24-0.86) x10^3/uL Absolute Nucleated RBC (0.00-0.012) x10^3u/L Lymphocytes % (19.3-51.7) % Monocytes % (4.7-12.5) % Eosinophils % (0.7-5.8) % Basophils % (0.1-1.2) % Absolute Granulocytes (1.56-6.13) x10^3/uL Basophils # (0.01-0.08) x10^3/uL D-Dimer (0.0-0.50) mg/L pO2/FiO2 Ratio % VBG pH (7.32-7.42) VBG pCO2 at Pat Temp (42-55) mm/Hg VBG pO2 at Pat Temp (25-40) mm/Hg VBG HCO3 (22-28) meq/L VBG O2 Sat (David) (95-100) VBG Base Excess (-2.0-2.0) VBG Hemoglobin VBG Carboxyhemoglobin (0.0-6.9) % T HGB POC Potassium (3.5-5.1) Sodium 136 (135-145) mmol/L Potassium 5.2 H (3.5-5.1) mmol/L Chloride 106 (98-107) mmol/L Carbon Dioxide 21 L (22-30) mmol/L Anion Gap 14.0 (5-15) MEQ/L BUN 32 H (7-17) mg/dL Creatinine 2.50 H (0.52-1.04) mg/dL Estimated GFR 19.3 ML/MIN Glucose 149 H (74-106) mg/dL Hemoglobin A1c (4.5-6.0) % Lactic Acid (0.4-2.0) Calcium 9.0 (8.4-10.2) mg/dL Magnesium (1.6-2.3) mg/dL Iron (37-170) ug/dL TIBC (265-462) ug/dL Iron Saturation (20-39) % Total Bilirubin 1.10 (0.2-1.3) mg/dL AST 38 H (14-36) U/L ALT 41 H (0-35) U/L Alkaline Phosphatase 183 H (38-126) U/L Troponin I (0.000-0.033) ng/mL NT-Pro-B Natriuret Pep (<300) pg/mL Serum Total Protein 7.6 (6.3-8.2) g/dL Albumin 4.0 (3.5-5.0) g/dL Triglycerides (30-150) mg/dL Cholesterol (50-200) mg/dL LDL Cholesterol (30-100) mg/dL HDL Cholesterol (40-60) mg/dL Heart Disease Risk Ratio TSH 3rd Generation (0.470-4.680) mIU/L Urine Color (Yellow) Urine Appearance (Clear) Urine pH (4.6-8.0) Ur Specific [place] (1.005-1.030) Urine Protein (Negative) Urine Glucose (UA) (Negative) mg/dL Urine Ketones (Negative) Urine Blood (Negative) Urine Nitrite (Negative) Urine Bilirubin (Negative) Urine Urobilinogen (0.2) mg/dL Ur Leukocyte Esterase (Negative) U Hyaline Cast (Auto) (0-2) /LPF Urine Microscopic RBC (0-5) /HPF Urine Microscopic WBC (0-5) /HPF Ur Epithelial Cells (None Seen) /HPF Urine Bacteria (None Seen) /HPF Urine Culture Reflexed (NO) Slides for Path Review ABO Group Rh Factor Antibody Screen (NEGATIVE) Crossmatch (COMPATIBLE) - Radiology Impressions Radiology Exams & Impressions: Radiology Procedures Category Date Time Status CHEST 1 VIEW (PORTABLE) Stat Exams 12/13/23 12:40 Completed CHEST WITHOUT CONTRAST [CT] Stat Exams 12/13/23 13:21 Completed ECHO W/2D AND DOPPLER [US] Routine Exams 12/14/23 08:00 Ordered HEAD WITHOUT CONTRAST [CT] Stat Exams 12/13/23 12:37 Completed PULMONARY PERF VENTILATION [NUCMED] Stat Exams 12/13/23 18:07 Ordered THYROID [US] Routine Exams 12/13/23 19:18 Ordered - Other Procedures and Tests Respiratory Therapy 12/13/23 17:34 Oxygen Nasal Cannula 4 lpm 12/13/23 18:07 EKG REPEAT IN AM 12/14/23 07:00 Respiratory Therapy Assessment DAILY Telemedicine Encounter - Telemedicine Encounter Telemedicine Encounter: "The entirety of this encounter was performed via Telemedicine" This visit was performed using real-time audio and video connection between my location and thepatients locationwith the assistance of a surrogateat the patients location. Written or verbal consent was obtained from the patient/g uardian to perform this visit [facility] technology. Any patient questions regarding the telemedicine interaction were answered. JONATHAN Encounter - JONATHAN Encounter Attestation JONATHAN Encounter Attestation: "DUNCAN Diop andhavediscussed pertinent aspects of their care with Erick Maddox agree with the history, physical exam (any modifications based on my personal exam will be noted below), assessment, and plan as outlined in original note. Please see immediately below for my summary of findings and additional assessment and plan along with any meaningful corrections/explanations to the Subjective/Objective portions of the JONATHAN note will be noted." My portion of the encounter took place via telemedicine. -Patient presenting with shortness of breath, chest pain and hypoxia likely related to CHF exacerbation (preserved EF) given lower ext edema, pulm edema and improvement with lasix. Continue IV lasix. Has history of DVT but has been off xarelto recently due to epistaxis. She tells me her PCP plans to resume it. PE less likely given borderline elevated D dimer however will check VQ scan to rule it out given h/o DVT and the fact that patient has been off anticoagulation.
[2023-12-13 18:39] LABS: Hematocrit 30.2 % (34.1-44.9); Mean Corpuscular Hemoglobin 25.4 pg (25.6-32.2); Mean Corpuscular Hgb Concent. 29.5 g/dL (32.2-35.5); Mean Platelet Volume 11.6 fL (9.4-12.3); Platelet Count 254 x10^3/uL (182-369); Red Blood Count 3.51 x10^6/uL (3.93-5.22); Red Cell Distribution Width 16.7 % (11.7-14.4); White Blood Count 4.8 x10^3/uL (3.98-10.04)
[2023-12-13 18:55] LABS: BILIRUBIN,TOTAL 1.1 mg/dL (0.2-1.3); Creatinine 1 2.5 mg/dL (0.52-1.04); EST GLOMERULAR FILTRATION RATE 19.3 ML/MIN; Potassium 5.2 mmol/L (3.5-5.1); Total Protein 7.6 g/dL (6.3-8.2)
[2023-12-13 19:02] LABS: Hemoglobin 8.9 g/dL (11.2-15.7)
[2023-12-13 19:16] LABS: Iron 116 ug/dL (37-170); Iron Saturation 30 % (20-39); TIBC 389 ug/dL (265-462)
--- NOTE | 2023-12-13 19:17 | XRAY ---
Indication: Short of breath. Comparison: October 26, 2023 Portable apical lordotic chest less inflated and remains grossly clear. Heart not enlarged again with left pacemaker. Bony thorax intact again with osteopenia and degenerative changes. Impression: Continued nonacute chest with chronic features.
[2023-12-13] MEDS: DUONEB 0.5-3 MG/3 ml Neb IH PRN (20:36)
[2023-12-13] MEDS: Lasix 40 MG/4 ML IV SCH (20:55)
[2023-12-13 20:56] LABS: Ferritin 22.6 ng/mL (11.1-264); Folate (Folic Acid) 12.3 ng/mL (2.76 - >20)
[2023-12-13] MEDS: DUONEB 0.5-3 MG/3 ml Neb IH SCH (22:00)
[2023-12-13] MEDS: AMITRIPTYLINE 25 MG TABLET PO SCH (22:51)
[2023-12-13] MEDS: REQUIP 2MG TAB PO SCH (22:51)
[2023-12-13] MEDS: Ativan 0.5 MG PO PRN (22:51)
[2023-12-13 23:07] LABS: Basophil 2 % (0.0-1.0); Lymphocytes 4 % (24-44); Neutrophils 94 % (1.56-6.13); Platelet Estimate NORMAL (NORMAL); Total Cells Counted 100
[2023-12-13 23:08] LABS: ANISOCYTOSIS 1+
[2023-12-14] MEDS: NORCO 5/325 MG PO ONE (00:45)
[2023-12-14] MEDS: NON-FORMULARY BULK ITEM PO ONE (01:40)
[2023-12-14] MEDS: CIMETIDINE 300 MG PO SCH (01:44)
[2023-12-14 05:41] LABS: Absolute Neutrophil Ct (ANC) 4.93 x10^3/uL (1.56-6.13); BASOPHIL % 0.2 % (0.1-1.2); Basophil (Absolute #) 0.01 x10^3/uL (0.01-0.08); Eosinophil (Absolute #) 0 x10^3/uL (0.04-0.36); Hematocrit 27.6 % (34.1-44.9); Hemoglobin 8.2 g/dL (11.2-15.7); IMMATURE GRAN # 0.04 x10^3u/L (0.001-0.031); IMMATURE GRAN % 0.7 % (0.001-0.429); Lymphocyte (Absolute #) 0.56 x10^3/uL (1.18-3.74); Lymphocytes % 9.7 % (19.3-51.7); Mean Cell Volume 84.7 fL (79.4-94.8); Mean Corpuscular Hemoglobin 25.2 pg (25.6-32.2); Mean Corpuscular Hgb Concent. 29.7 g/dL (32.2-35.5); Mean Platelet Volume 11.8 fL (9.4-12.3); Monocyte (Absolute #) 0.23 x10^3/uL (0.24-0.86); Neutrophil % 85.4 % (34.0-71.1); Platelet Count 273 x10^3/uL (182-369); Red Blood Count 3.26 x10^6/uL (3.93-5.22); White Blood Count 5.8 x10^3/uL (3.98-10.04)
[2023-12-14] MEDS ORDERED: NORCO 5/325 MG PO PRN (06:00)
[2023-12-14 06:10] LABS: ALBUMIN 3.8 g/dL (3.5-5.0); ANION GAP 12.4 MEQ/L (5-15); BILIRUBIN,TOTAL 0.4 mg/dL (0.2-1.3); Calcium 8.7 mg/dL (8.4-10.2); Creatinine 1 2.47 mg/dL (0.52-1.04); EST GLOMERULAR FILTRATION RATE 19.6 ML/MIN; Potassium 5.1 mmol/L (3.5-5.1); Total Protein 7.3 g/dL (6.3-8.2)
[2023-12-14 07:40] LABS: Slide Review 1 YES
[2023-12-14] MEDS ORDERED: Narcan 0.4 MG/ML IV PRN (07:50)
[2023-12-14] MEDS ORDERED: NON-FORMULARY ITEM PO SCH (10:00)
[2023-12-14] MEDS ORDERED: NON-FORMULARY ITEM (Mirabegron [Myrbetriq] 50 MG Tab.Er.24h) PO SCH (10:00)
[2023-12-14] MEDS: ceLEXa 20 MG PO SCH (10:37)
[2023-12-14] MEDS: SYNTHROID 25 MCG PO SCH (10:38)
[2023-12-14] MEDS: MYRBETRIQ PO SCH (10:38)
[2023-12-14] MEDS: Toprol-Xl 25MG Tablets PO SCH (10:39)
[2023-12-14] MEDS: Protonix 40MG Tablet PO SCH (10:39)
--- NOTE | 2023-12-14 10:56 | XRAY ---
Indication: Hypoxia. Elevated d-dimer. History of DVT. Comparison: None Patient received 5.6 mCi technetium 99 MAA for the perfusion portion of the exam. Patient inhaled 36.7 mCi aerosolized technetium 99 DTPA for the ventilation portion of the exam. Multiple planar images obtained. Perfusion images demonstrates homogeneous radiopharmaceutical activity bilaterally. Ventilation images also demonstrates homogeneous radiopharmaceutical activity bilaterally. There is mild central radiopharmaceutical activity favoring chronic obstructive disease. Impression: Mild central radiopharmaceutical activity on ventilation images favoring chronic obstructive disease. Perfusion images negative for segmental/subsegmental defects. Normal ventilation perfusion scan.
[2023-12-14] MEDS: NORCO 10-325 MG PO SCH (11:40)
[2023-12-14] MEDS: PATIENT OWN MEDICATION PO SCH (11:40)
--- NOTE | 2023-12-14 14:12 | XRAY ---
Indication: Abnormal thyroid on CT chest. Two-dimensional thyroid sonogram performed. Comparison: None Enlarged left lobe measuring 5.0 x 2.3 x 2.0 cm. Right lobe within normal limits measuring 4.5 x 2.2 x 3.3 cm. Isthmus thickened measuring 1.3 cm. Thyroid parenchyma diffusely heterogeneous without abnormal hyperemic color flow. There are multiple heterogeneous solid nodules bilaterally, largest right midpole measuring 3.2 x 2.9 x 2.6 cm. No focal cyst. Impression: Sonographic features favor multinodular goiter.
--- NOTE | 2023-12-14 16:31 | PCM.NOTE ---
Date and Time: 12/14/23 1625 Subjective Assessment: 12/14/23 Ms. Garcia is a 78 year old female poor historian with a pmhx of stroke, HLD, HTN, KS, CHF, hypothyroidism, pancreatitis, and arthritis who presented to ED 12/13/23 via EMS with complaints of chest pain with associated shortness of breath, palpitations, and headache. Onset of pain was approximately three weeks ago. Patient states the pain has been intermittent and relieved with nitro. Pain unrelieved with Nitro. Pain located in the substernal chest with radiation to the left arm dull/pressure-like in characteristic with associated shortness of breath and nausea. Aggravating factors include movement, deep breathing, coughing. No relieving factors. Patient does have h/o DVT diagnosed in July of 2023, she has been on Xarelto. She has been experiencing severe epitaxis lasting 1-1.5 hours per episodes and taken off the Xarelto last week. CT head showing chronic/lacunar infarcts were seen in the capsuloganglionic region on both sides, the left thalamic region, and the region of the head of the caudate nucleus on the right side.Age-matched cerebral atrophic and chronic microvascular ischemic changes. No acute hemorrhagic pathology. CT chest demonstrates no pulmonary mass, major collapse or consolidative changes. Mild cardiomegaly with pulmonary vascular congestion. Clinical correlation is suggested. Interlobular septal thickening in lower lobes probably related to evolving interstitial edema. Suggestion of bilateral small pleural effusion, more on left side. The ascending aorta is mildly dilated with maximum diameter measuring about 42 mm. Suggestion of enlarged thyroid lobes showing hypodense nodules. Lab findings remarkable for normocytic, hypochromic anemia with hgb at 7.4 (baseline around 9). Hyperkalemia resolved today. US, Echo, and VQ scan pending. Pt is rather anxious today and placed on O2 at 2lNC as she felt SOB. She denies CP, Abd. pain, N/V/D. - Review of Systems Constitutional: No Fever, No Chills Eyes: No Symptoms Ears, Nose, & Throat: No Symptoms Respiratory: Short Of Breath, No Cough Cardiac: No Chest Pain, No Edema, No Syncope Abdominal/Gastrointestinal: No Abdominal Pain, No Nausea, No Vomiting, No Diarrhea Genitourinary Symptoms: No Dysuria Musculoskeletal: No Back Pain, No Neck Pain Skin: No Rash Neurological: No Dizziness, No Focal Weakness, No Sensory Changes Psychological: No Symptoms Endocrine: No Symptoms Hematologic/Lymphatic: No Symptoms Immunological/Allergic: No Symptoms Objective Exam General Appearance: no apparent distress, alert Neurologic Exam: alert, oriented x 3, cooperative, normal mood/affect, nml cerebellar function, sensation nml, No motor deficits Skin Exam: normal color, warm, dry Eye Exam: PERRL, EOMI, eyes nml inspection Ears, Nose, Throat Exam: normal ENT inspection, pharynx normal, moist mucous membranes Neck Exam: normal inspection, non-tender, supple, full range of motion Respiratory Exam: normal breath sounds, lungs clear, No respiratory distress Cardiovascular Exam: regular rate/rhythm, normal heart sounds Gastrointestinal/Abdomen Exam: soft, No tenderness, No mass Extremity Exam: normal inspection, normal range of motion Back Exam: normal inspection, normal range of motion, No CVA tenderness, No vertebral tenderness Pelvic Exam: deferred Rectal Exam: deferred Objective Data Vital Signs: Vital Signs - 24 hr Temp Pulse Resp BP BP Pulse Ox 12/14/23 16:00 97.9 F 78 16 112/58 90 L 12/14/23 12:00 97.7 F 84 16 104/52 96 12/14/23 08:00 98.1 F 91 H 16 137/59 92 L 12/14/23 07:00 90 16 92 L 12/14/23 04:00 97.6 F 85 20 123/63 96 12/14/23 00:00 97.8 F 89 26 H 132/78 93 L 12/13/23 20:38 86 20 95 12/13/23 20:00 96.9 F 85 20 123/57 95 12/13/23 17:54 75 22 95 12/13/23 17:53 97.2 F 90 18 155/84 94 L 12/13/23 17:34 94 L 12/13/23 17:31 97.2 F 90 20 155/84 88 L 12/13/23 16:30 76 21 122/68 Pain Assessment - Last Documented Pain Intensity 5 Pain Scale Used 0-10 Pain Scale Intake and Output: Intake & Output 12/12/23 12/13/23 12/14/23 12/15/23 11:59 11:59 11:59 11:59 Intake Total 2140 380 Output Total 250 Balance 1890 380 Weight 115.6 kg Lab Results: Lab Results-Last 24 Hours 12/13/23 12/13/23 12/13/23 Range/Units 16:00 18:33 18:33 WBC (3.98-10.04) x10^3/uL RBC (3.93-5.22) x10^6/uL Hgb (11.2-15.7) g/dL Hct (34.1-44.9) % MCV (79.4-94.8) fL MCH (25.6-32.2) pg MCHC (32.2-35.5) g/dL RDW (11.7-14.4) % Plt Count (182-369) x10^3/uL MPV (9.4-12.3) fL Gran % (34.0-71.1) % Immature Gran % (Auto) (0.001-0.429) % Nucleat RBC Rel Count (0.00-0.2) % Eos # (Auto) (0.04-0.36) x10^3/uL Immature Gran # (Auto) (0.001-0.031) x10^3u/L Absolute Lymphs (auto) (1.18-3.74) x10^3/uL Absolute Monos (auto) (0.24-0.86) x10^3/uL Absolute Nucleated RBC (0.00-0.012) x10^3u/L Lymphocytes % (19.3-51.7) % Monocytes % (4.7-12.5) % Eosinophils % (0.7-5.8) % Basophils % (0.1-1.2) % Absolute Granulocytes (1.56-6.13) x10^3/uL Segmented Neutrophils (1.56-6.13) % Lymphocytes (Manual) (24-44) % Basophils (Manual) (0.0-1.0) % Basophils # (0.01-0.08) x10^3/uL Platelet Estimate (NORMAL) RBC Morphology Anisocytosis Sodium (135-145) mmol/L Potassium (3.5-5.1) mmol/L Chloride (98-107) mmol/L Carbon Dioxide (22-30) mmol/L Anion Gap (5-15) MEQ/L BUN (7-17) mg/dL Creatinine (0.52-1.04) mg/dL Estimated GFR ML/MIN Glucose (74-106) mg/dL Calcium (8.4-10.2) mg/dL Iron 116 (37-170) ug/dL TIBC 389 (265-462) ug/dL Iron Saturation 30 (20-39) % Ferritin 22.6 (11.1-264) ng/mL Total Bilirubin (0.2-1.3) mg/dL AST (14-36) U/L ALT (0-35) U/L Alkaline Phosphatase (38-126) U/L Troponin I < 0.012 (0.000-0.033) ng/mL Serum Total Protein (6.3-8.2) g/dL Albumin (3.5-5.0) g/dL Vitamin B12 753 (239-931) pg/mL Folic Acid 12.3 (2.76 - >20) ng/mL Slides for Path Review 12/13/23 12/13/23 12/13/23 Range/Units 18:33 18:33 21:18 WBC 4.8 (3.98-10.04) x10^3/uL RBC 3.51 L (3.93-5.22) x10^6/uL Hgb 8.9 L D (11.2-15.7) g/dL Hct 30.2 L (34.1-44.9) % MCV 86.0 (79.4-94.8) fL MCH 25.4 L (25.6-32.2) pg MCHC 29.5 L (32.2-35.5) g/dL RDW 16.7 H (11.7-14.4) % Plt Count 254 (182-369) x10^3/uL MPV 11.6 (9.4-12.3) fL Gran % (34.0-71.1) % Immature Gran % (Auto) (0.001-0.429) % Nucleat RBC Rel Count (0.00-0.2) % Eos # (Auto) (0.04-0.36) x10^3/uL Immature Gran # (Auto) (0.001-0.031) x10^3u/L Absolute Lymphs (auto) (1.18-3.74) x10^3/uL Absolute Monos (auto) (0.24-0.86) x10^3/uL Absolute Nucleated RBC (0.00-0.012) x10^3u/L Lymphocytes % (19.3-51.7) % Monocytes % (4.7-12.5) % Eosinophils % (0.7-5.8) % Basophils % (0.1-1.2) % Absolute Granulocytes (1.56-6.13) x10^3/uL Segmented Neutrophils 94 H (1.56-6.13) % Lymphocytes (Manual) 4 L (24-44) % Basophils (Manual) 2 H (0.0-1.0) % Basophils # (0.01-0.08) x10^3/uL Platelet Estimate NORMAL (NORMAL) RBC Morphology ABNORMAL Anisocytosis 1+ Sodium 136 (135-145) mmol/L Potassium 5.2 H (3.5-5.1) mmol/L Chloride 106 (98-107) mmol/L Carbon Dioxide 21 L (22-30) mmol/L Anion Gap 14.0 (5-15) MEQ/L BUN 32 H (7-17) mg/dL Creatinine 2.50 H (0.52-1.04) mg/dL Estimated GFR 19.3 ML/MIN Glucose 149 H (74-106) mg/dL Calcium 9.0 (8.4-10.2) mg/dL Iron (37-170) ug/dL TIBC (265-462) ug/dL Iron Saturation (20-39) % Ferritin (11.1-264) ng/mL Total Bilirubin 1.10 (0.2-1.3) mg/dL AST 38 H (14-36) U/L ALT 41 H (0-35) U/L Alkaline Phosphatase 183 H (38-126) U/L Troponin I < 0.012 (0.000-0.033) ng/mL Serum Total Protein 7.6 (6.3-8.2) g/dL Albumin 4.0 (3.5-5.0) g/dL Vitamin B12 (239-931) pg/mL Folic Acid (2.76 - >20) ng/mL Slides for Path Review 12/14/23 12/14/23 Range/Units 05:15 05:15 WBC 5.8 (3.98-10.04) x10^3/uL RBC 3.26 L (3.93-5.22) x10^6/uL Hgb 8.2 L (11.2-15.7) g/dL Hct 27.6 L (34.1-44.9) % MCV 84.7 (79.4-94.8) fL MCH 25.2 L (25.6-32.2) pg MCHC 29.7 L (32.2-35.5) g/dL RDW 17.0 H (11.7-14.4) % Plt Count 273 (182-369) x10^3/uL MPV 11.8 (9.4-12.3) fL Gran % 85.4 H (34.0-71.1) % Immature Gran % (Auto) 0.7 H (0.001-0.429) % Nucleat RBC Rel Count 0.0 (0.00-0.2) % Eos # (Auto) 0 L (0.04-0.36) x10^3/uL Immature Gran # (Auto) 0.04 H (0.001-0.031) x10^3u/L Absolute Lymphs (auto) 0.56 L (1.18-3.74) x10^3/uL Absolute Monos (auto) 0.23 L (0.24-0.86) x10^3/uL Absolute Nucleated RBC 0.00 (0.00-0.012) x10^3u/L Lymphocytes % 9.7 L (19.3-51.7) % Monocytes % 4.0 L (4.7-12.5) % Eosinophils % 0.0 L (0.7-5.8) % Basophils % 0.2 (0.1-1.2) % Absolute Granulocytes 4.93 (1.56-6.13) x10^3/uL Segmented Neutrophils (1.56-6.13) % Lymphocytes (Manual) (24-44) % Basophils (Manual) (0.0-1.0) % Basophils # 0.01 (0.01-0.08) x10^3/uL Platelet Estimate (NORMAL) RBC Morphology Anisocytosis Sodium 134 L (135-145) mmol/L Potassium 5.1 (3.5-5.1) mmol/L Chloride 105 (98-107) mmol/L Carbon Dioxide 22 (22-30) mmol/L Anion Gap 12.4 (5-15) MEQ/L BUN 36 H (7-17) mg/dL Creatinine 2.47 H (0.52-1.04) mg/dL Estimated GFR 19.6 ML/MIN Glucose 117 H (74-106) mg/dL Calcium 8.7 (8.4-10.2) mg/dL Iron (37-170) ug/dL TIBC (265-462) ug/dL Iron Saturation (20-39) % Ferritin (11.1-264) ng/mL Total Bilirubin 0.40 (0.2-1.3) mg/dL AST 37 H (14-36) U/L ALT 42 H (0-35) U/L Alkaline Phosphatase 174 H (38-126) U/L Troponin I (0.000-0.033) ng/mL Serum Total Protein 7.3 (6.3-8.2) g/dL Albumin 3.8 (3.5-5.0) g/dL Vitamin B12 (239-931) pg/mL Folic Acid (2.76 - >20) ng/mL Slides for Path Review YES Radiology Exams: Radiology Procedures Category Date Time Status CHEST 1 VIEW (PORTABLE) Stat Exams 12/13/23 12:40 Completed CHEST WITHOUT CONTRAST [CT] Stat Exams 12/13/23 13:21 Completed ECHO W/2D AND DOPPLER [US] Routine Exams 12/14/23 08:00 Taken HEAD WITHOUT CONTRAST [CT] Stat Exams 12/13/23 12:37 Completed PULMONARY PERF VENTILATION [NUCMED] Stat Exams 12/14/23 18:07 Completed THYROID [US] Routine Exams 12/14/23 19:18 Completed Multi-Disciplinary Progress Notes: Multi-Disciplinary Progress Notes 12/14/23 13:10 Case Management Note by Tabitha Trinh PATIENT HAS [facility]. THEY WERE NOTIFIED PATIENT HERE OBS. THEY WILL NEED NOTIFIED AT TIME OF DC AT [phone]. THEY WILL NEED FAXED THE DC INSTRUCTIONS, DC MED LIST AND DC SUMMARY TO [phone] Initialized on 12/14/23 13:10 - END OF NOTE Assessment/Plan (1) Chest pain Current Visit: Yes Status: Acute Assessment & Plan: - trop x3 negative - -BNP 444 EKG -EKG per ED physician read RATE (82), Sinus Rhythm, NORMAL AXIS, NORMAL INTERVALS, NORMAL QRS, NORMAL ST-T -repeat in a.m. -CT chest CT chest demonstrates no pulmonary mass, major collapse or consolidative changes. Mild cardiomegaly with pulmonary vascular congestion. Clinical correlation is suggested. Interlobular septal thickening in lower lobes probably related to evolving interstitial edema. Suggestion of bilateral small pleural effusion, more on left side. The ascending aorta is mildly dilated with maximum diameter measuring about 42 mm. Allergy to ASA -Ddimer at 0.86 -Pt on Xarelto until last week for DVT in left lower ext - Kidney function contraindicates CTA - VQ scan negative for PE Code(s): R07.9 - CHEST PAIN, UNSPECIFIED (2) Acute hypoxic respiratory failure Current Visit: Yes Status: Acute Assessment & Plan: -Most likely secondary to CHF exacerbation -CT chest demonstrates no pulmonary mass, major collapse or consolidative changes. Mild cardiomegaly with pulmonary vascular congestion. Clinical correlation is suggested. Interlobular septal thickening in lower lobes probably related to evolving interstitial edema. Suggestion of bilateral small pleural effusion, more on left side. The ascending aorta is mildly dilated with maximum diameter measuring about 42 mm. -VQ scan tomorrow -Supplemental oxygen with spo2 goal greater than 92% -RT eval -Nebs/bronchodilators - BC x2 negative Code(s): J96.01 - ACUTE RESPIRATORY FAILURE WITH HYPOXIA (3) Acute renal failure superimposed on chronic kidney disease Current Visit: Yes Status: Acute Assessment & Plan: - at baseline renal function -Fluids contraindicated with HF -Avoid ANKITA/ARB/NSAIDS -Monitor renal/lytes daily -Follows with nephrology in [place] Code(s): N17.9 - ACUTE KIDNEY FAILURE, UNSPECIFIED; N18.9 - CHRONIC KIDNEY DISEASE, UNSPECIFIED (4) Anemia Current Visit: Yes Status: Acute Assessment & Plan: - Hgb 8.2 - received 1 unit PRBC on admission - iron panel reviewed - likely 2:2 xarelto which is on hold Code(s): D64.9 - ANEMIA, UNSPECIFIED (5) CHF exacerbation Current Visit: Yes Status: Acute Assessment & Plan: Assessment & Plan: -Supplemental oxygen with goal spo2 > 92% -RA at baseline - 4L during interview -Strict I&O - daily weights/ elevated HOB -optimize electrolytes -Echo results pending -Lasix 40mg BID - monitor kidney function closely --Echo from 06/16/23 with EF at 55-60% IMPRESSION: 1) NORMAL CONTRACTILITY OF THE LEFT VENTRICLE. 2) BORDERLINE CONCENTRIC LEFT VENTRICULAR HYPERTROPHY. 3) BORDERLINE LEFT ATRIAL DILATATION. 4) MILD LEFT VENTRICULAR DILATATION. Code(s): I50.9 - HEART FAILURE, UNSPECIFIED (6) History of deep venous thrombosis (DVT) of distal vein of left lower extremity Current Visit: Yes Status: Acute Assessment & Plan: -Previously on Xarelto - held due to severe epitaxis last week - consider resuming when hgb stable Code(s): Z86.718 - PERSONAL HISTORY OF OTHER VENOUS THROMBOSIS AND EMBOLISM (7) Morbid obesity with BMI of 40.0-44.9, adult Current Visit: No Status: Chronic Assessment & Plan: -BMI 45.6 - advised diet and exercise control Code(s): E66.01 - MORBID (SEVERE) OBESITY DUE TO EXCESS CALORIES; Z68.41 - BODY MASS INDEX [BMI] 40.0-44.9, ADULT (8) CAD (coronary artery disease) Current Visit: No Status: Chronic Assessment & Plan: - Continue Imdur, lasix, Code(s): I25.10 - ATHSCL HEART DISEASE OF [place] CORONARY ARTERY W/O ANG PCTRS (9) Depression Current Visit: No Status: Chronic Assessment & Plan: - Continue citalopram Code(s): F32.A - DEPRESSION, UNSPECIFIED (10) HTN (hypertension) Current Visit: No Status: Chronic Assessment & Plan: - Hypotensive in ED - hold BP meds for now - monitor closely - BP stable today Code(s): I10 - ESSENTIAL (PRIMARY) HYPERTENSION (11) History of CVA with residual deficit Current Visit: No Status: Chronic Assessment & Plan: - speech and language affected - Continue statin Code(s): I69.30 - UNSPECIFIED SEQUELAE OF CEREBRAL INFARCTION (12) Hyperlipidemia Current Visit: No Status: Chronic Assessment & Plan: -continue statin Code(s): E78.5 - HYPERLIPIDEMIA, UNSPECIFIED (13) Hypothyroidism Current Visit: No Status: Chronic Assessment & Plan: - TSH level is low, synthyroid dose reduced - will need to f/u op with recheck -CT chest w/ Suggestion of enlarged thyroid lobes showing hypodense nodules. - US thyroid 12/13 Enlarged left lobe measuring 5.0 x 2.3 x 2.0 cm. Right lobe within normal limits measuring 4.5 x 2.2 x 3.3 cm. Isthmus thickened measuring 1.3 cm. Thyroid parenchyma diffusely heterogeneous without abnormal hyperemic color flow. There are multiple heterogeneous solid nodules bilaterally, largest right midpole measuring 3.2 x 2.9 x 2.6 cm. No focal cyst. Impression: Sonographic features favor multinodular goiter. - Will need OP f/u with endocrinology Code(s): E03.9 - HYPOTHYROIDISM, UNSPECIFIED (14) Restless legs Current Visit: No Status: Chronic Assessment & Plan: - Continue ropinirole (15) Anxiety Current Visit: Yes Status: Acute Assessment & Plan: - continue xanax - placed on 2lNC as she felt SOB with anxiety per nursing VTE: xarelto on hold d/t hgb PPI:Protonix D/C plan: tomorrow Code(s): F41.9 - ANXIETY DISORDER, UNSPECIFIED
[2023-12-14] MEDS: Lasix 40 MG/4 ML IV SCH (17:25)
[2023-12-14] MEDS: ZOCOR 20MG PO SCH (21:56)
[2023-12-15] MEDS: Zofran 4 MG/2 ML VIAL IV PRN (05:08)
[2023-12-15] MEDS: TYLENOL 325 MG PO PRN (05:20)
[2023-12-15] MEDS: Compazine 10 MG/2 ML IV ONE (09:29)
[2023-12-15 09:42] LABS: Hematocrit 32.1 % (34.1-44.9); Hemoglobin 9.5 g/dL (11.2-15.7); Mean Cell Volume 86.8 fL (79.4-94.8); Mean Corpuscular Hemoglobin 25.7 pg (25.6-32.2); Mean Corpuscular Hgb Concent. 29.6 g/dL (32.2-35.5); Mean Platelet Volume 11.6 fL (9.4-12.3); Platelet Count 244 x10^3/uL (182-369); Red Cell Distribution Width 16.6 % (11.7-14.4); White Blood Count 8.8 x10^3/uL (3.98-10.04)
[2023-12-15 09:51] LABS: ALBUMIN 4.1 g/dL (3.5-5.0); ANION GAP 13.8 MEQ/L (5-15); BILIRUBIN,TOTAL 0.6 mg/dL (0.2-1.3); Calcium 9.3 mg/dL (8.4-10.2); Creatinine 1 2.67 mg/dL (0.52-1.04); EST GLOMERULAR FILTRATION RATE 17.9 ML/MIN; Total Protein 7.7 g/dL (6.3-8.2)
--- NOTE | 2023-12-15 11:58 | PCM.DS ---
Discharge Summary Date of Admission: 12/13/23 17:25 Date of Discharge: 12/15/23 Admitting Physician: ABRAHAN HULL MD Primary Care Provider: [facility] Allergies Allergies aspirin Allergy (Severe, Verified 12/13/23 12:36) fluticasone [From Flonase] Allergy (Verified 12/13/23 12:36) naproxen [From Aleve] Adverse Reaction (Intermediate, Verified 12/13/23 12:36) Penicillins Adverse Reaction (Verified 12/13/23 12:36) Nausea and Vomiting Hospital Summary - Hospital Course Hospital Course: 12/14/23 Ms. Garcia is a 78 year old female poor historian with a pmhx of stroke, HLD, HTN, SC, CHF, hypothyroidism, pancreatitis, and arthritis who presented to ED 12/13/23 via EMS with complaints of chest pain with associated shortness of b reath, palpitations, and headache. Onset of pain was approximately three weeks ago. Patient states the pain has been intermittent and relieved with nitro. Pain unrelieved with Nitro. Pain located in the substernal chest with radiation to the left arm dull/pressure-like in characteristic with associated shortness of breath and nausea. Aggravating factors include movement, deep breathing, coughing. No relieving factors. Patient does have h/o DVT diagnosed in July of 2023, she has been on Xarelto. She has been experiencing severe epitaxis lasting 1-1.5 hours per episodes and taken off the Xarelto last week. CT head showing chronic/lacunar infarcts were seen in the capsuloganglionic region on both sides, the left thalamic region, and the region of the head of the caudate nucleus on the right side.Age-matched cerebral atrophic and chronic microvascular ischemic changes. No acute hemorrhagic pathology. CT chest demonstrates no pulmonary mass, major collapse or consolidative changes. Mild cardiomegaly with pulmonary vascular congestion. Clinical correlation is suggested. Interlobular septal thickening in lower lobes probably related to evolving interstitial edema. Suggestion of bilateral small pleural effusion, more on left side. The ascending aorta is mildly dilated with maximum diameter measuring about 42 mm. Suggestion of enlarged thyroid lobes showing hypodense nodules. Lab findings remarkable for normocytic, hypochromic anemia with hgb at 7.4 (baseline around 9). Hyperkalemia resolved today. US, Echo, and VQ scan pending. Pt is rather anxious today and placed on O2 at 2lNC as she felt SOB. She denies CP, Abd. pain, N/V/D. 12/15/23 Pt resting in bed. She did have some nausea this AM and compazine added as zofran was not helping. This has made her a bit sleepy today. Thyroid US reviwed. VQ scan negative for PE. Echo shows EF 55%. Pt is doing better today. ELADIO resolved. CP and SOB resolved. She will need to f/u with cardiology OP. She denies any further concerns at this time. - Vitals & Intake/Output Vital Signs: Vital Signs Temperature 96.7 F 12/15/23 07:21 Pulse Rate 83 12/15/23 07:21 Respiratory Rate 23 12/15/23 07:21 Blood Pressure 129/60 12/15/23 07:21 O2 Sat by Pulse Oximetry 100 12/15/23 10:00 Intake & Output: Intake & Output 12/12/23 12/13/23 12/14/23 12/15/23 11:59 11:59 11:59 11:59 Intake Total 2140 440 Output Total 250 1200 Balance 1890 -760 Weight 115.6 kg - Lab Result Diagrams: 12/15/23 09:32 12/15/23 09:32 Lab Results-Last 24 Hrs: Lab Results-Last 24 Hours 12/15/23 12/15/23 12/15/23 Range/Units 07:06 09:32 09:32 WBC 8.8 (3.98-10.04) x10^3/uL RBC 3.70 L (3.93-5.22) x10^6/uL Hgb 9.5 L (11.2-15.7) g/dL Hct 32.1 L (34.1-44.9) % MCV 86.8 (79.4-94.8) fL MCH 25.7 (25.6-32.2) pg MCHC 29.6 L (32.2-35.5) g/dL RDW 16.6 H (11.7-14.4) % Plt Count 244 (182-369) x10^3/uL MPV 11.6 (9.4-12.3) fL Sodium 136 (135-145) mmol/L Potassium 5.0 (3.5-5.1) mmol/L Chloride 104 (98-107) mmol/L Carbon Dioxide 23 (22-30) mmol/L Anion Gap 13.8 (5-15) MEQ/L BUN 43 H (7-17) mg/dL Creatinine 2.67 H (0.52-1.04) mg/dL Estimated GFR 17.9 ML/MIN Glucose 136 H (74-106) mg/dL POC Glucometer 129 H (74 to 106) mg/dL Calcium 9.3 (8.4-10.2) mg/dL Total Bilirubin 0.60 (0.2-1.3) mg/dL AST 66 H (14-36) U/L ALT 71 H (0-35) U/L Alkaline Phosphatase 211 H (38-126) U/L Serum Total Protein 7.7 (6.3-8.2) g/dL Albumin 4.1 (3.5-5.0) g/dL Micro Results-Entire Visit: Microbiology 12/13/23 13:22 Blood Culture - Preliminary Blood 12/13/23 13:33 Blood Culture - Preliminary Blood - Radiology Exams Ordered Rad Exams-Entire Visit: Radiology Procedures Category Date Time Status CHEST 1 VIEW (PORTABLE) Stat Exams 12/13/23 12:40 Completed CHEST WITHOUT CONTRAST [CT] Stat Exams 12/13/23 13:21 Completed ECHO W/2D AND DOPPLER [US] Routine Exams 12/14/23 08:00 Taken HEAD WITHOUT CONTRAST [CT] Stat Exams 12/13/23 12:37 Completed PULMONARY PERF VENTILATION [NUCMED] Stat Exams 12/14/23 18:07 Completed THYROID [US] Routine Exams 12/14/23 19:18 Completed - Procedures and Test Procedures and Tests throughout Hospitalization: Therapy Orders & Screens 12/13/23 12:55 Respiratory Therapy Assessment DAILY Comment: 12/13/23 17:34 Oxygen Nasal Cannula 4 lpm Comment: Respiratory Therapy Consult ONCE Comment: Reason For Exam: 12/13/23 18:07 EKG REPEAT IN AM Comment: Diagnosis: sob/cp Respiratory Therapy Consult ONCE Comment: Reason For Exam: Diagnosis: sob/cp 12/14/23 07:00 Respiratory Therapy Assessment DAILY Comment: Diagnosis: sob/cp Discharge Exam General Appearance: no apparent distress, alert Neurologic Exam: alert, oriented x 3, cooperative, normal mood/affect, nml cerebellar function, sensation nml, No motor deficits Eye Exam: PERRL, EOMI, eyes nml inspection Ears, Nose, Throat Exam: normal ENT inspection, pharynx normal, moist mucous membranes Neck Exam: normal inspection, non-tender, supple, full range of motion Respiratory Exam: normal breath sounds, lungs clear, No respiratory distress Cardiovascular Exam: regular rate/rhythm, normal heart sounds Gastrointestinal/Abdomen Exam: soft, No tenderness, No mass Pelvic Exam: deferred Rectal Exam: deferred Back Exam: normal inspection, normal range of motion, No CVA tenderness, No vertebral tenderness Extremity Exam: normal inspection, normal range of motion Skin Exam: normal color, warm, dry Final Diagnosis/Problem List - Final Discharge Diagnosis/Problem (1) Chest pain Current Visit: Yes Status: Acute Code(s): R07.9 - CHEST PAIN, UNSPECIFIED (2) Acute hypoxic respiratory failure Current Visit: Yes Status: Acute Code(s): J96.01 - ACUTE RESPIRATORY FAILURE WITH HYPOXIA (3) Acute renal failure superimposed on chronic kidney disease Current Visit: Yes Status: Acute Code(s): N17.9 - ACUTE KIDNEY FAILURE, U NSPECIFIED; N18.9 - CHRONIC KIDNEY DISEASE, UNSPECIFIED (4) Anemia Current Visit: Yes Status: Acute Code(s): D64.9 - ANEMIA, UNSPECIFIED (5) CHF exacerbation Current Visit: Yes Status: Acute Code(s): I50.9 - HEART FAILURE, UNSPECIFIED (6) History of deep venous thrombosis (DVT) of distal vein of left lower extremity Current Visit: Yes Status: Acute Code(s): Z86.718 - PERSONAL HISTORY OF OTHER VENOUS THROMBOSIS AND EMBOLISM (7) Morbid obesity with BMI of 40.0-44.9, adult Current Visit: No Status: Chronic Code(s): E66.01 - MORBID (SEVERE) OBESITY DUE TO EXCESS CALORIES; Z68.41 - BODY MASS INDEX [BMI] 40.0-44.9, ADULT (8) CAD (coronary artery disease) Current Visit: No Status: Chronic Code(s): I25.10 - ATHSCL HEART DISEASE OF [place] CORONARY ARTERY W/O ANG PCTRS (9) Depression Current Visit: No Status: Chronic Code(s): F32.A - DEPRESSION, UNSPECIFIED (10) HTN (hypertension) Current Visit: No Status: Chronic Code(s): I10 - ESSENTIAL (PRIMARY) HYPERTENSION (11) History of CVA with residual deficit Current Visit: No Status: Chronic Code(s): I69.30 - UNSPECIFIED SEQUELAE OF CEREBRAL INFARCTION (12) Hyperlipidemia Current Visit: No Status: Chronic Code(s): E78.5 - HYPERLIPIDEMIA, UNSPECIFIED (13) Hypothyroidism Current Visit: No Status: Chronic Code(s): E03.9 - HYPOTHYROIDISM, UNSPECIFIED (14) Restless legs Current Visit: No Status: Chronic (15) Anxiety Current Visit: Yes Status: Acute Assessment & Plan: (1) Chest pain Current Visit: Yes Status: Acute Assessment & Plan: - trop x3 negative - -BNP 444 EKG -EKG per ED physician read RATE (82), Sinus Rhythm, NORMAL AXIS, NORMAL INTERVALS, NORMAL QRS, NORMAL ST-T -repeat in a.m. -CT chest CT chest demonstrates no pulmonary mass, major collapse or consolidative changes. Mild cardiomegaly with pulmonary vascular congestion. C linical correlation is suggested. Interlobular septal thickening in lower lobes probably related to evolving interstitial edema. Suggestion of bilateral small pleural effusion, more on left side. The ascending aorta is mildly dilated with maximum diameter measuring about 42 mm. Allergy to ASA -Ddimer at 0.86 -Pt on Xarelto until last week for DVT in left lower ext - Kidney function contraindicates CTA - VQ scan negative for PE Code(s): R07.9 - CHEST PAIN, UNSPECIFIED (2) Acute hypoxic respiratory failure Current Visit: Yes Status: Acute Assessment & Plan: -Most likely secondary to CHF exacerbation -CT chest demonstrates no pulmonary mass, major collapse or consolidative changes. Mild cardiomegaly with pulmonary vascular congestion. Clinical correlation is suggested. Interlobular septal thickening in lower lobes probably related to evolving interstitial edema. Suggestion of bilateral small pleural effusion, more on left side. The ascending aorta is mildly dilated with maximum diameter measuring about 42 mm. -VQ scan tomorrow -Supplemental oxygen with spo2 goal greater than 92% -RT eval -Nebs/bronchodilators - BC x2 negative Code(s): J96.01 - ACUTE RESPIRATORY FAILURE WITH HYPOXIA (3) Acute renal failure superimposed on chronic kidney disease Current Visit: Yes Status: Acute Assessment & Plan: - at baseline renal function -Fluids contraindicated with HF -Avoid ANKITA/ARB/NSAIDS -Monitor renal/lytes daily -Follows with nephrology in [place] Code(s): N17.9 - ACUTE KIDNEY FAILURE, UNSPECIFIED; N18.9 - CHRONIC KIDNEY DISEASE, UNSPECIFIED (4) Anemia Current Visit: Yes Status: Acute Assessment & Plan: - Hgb 8.2 - received 1 unit PRBC on admission - iron panel reviewed - likely 2:2 xarelto which is on hold 12/14 - HGB 9.5 will restart Xarelto - will need to f/u with cardiology on risk vs. benefits Code(s): D64.9 - ANEMIA, UNSPECIFIED (5) CHF exacerbation Current Visit: Yes Status: Acute Assessment & Plan: Assessment & Plan: -Supplemental oxygen with goal spo2 > 92% -RA at baseline - 4L during interview -Strict I&O - daily weights/ elevated HOB -optimize electrolytes -Echo results pending -Lasix 40mg BID - monitor kidney function closely --Echo from 06/16/23 with EF at 55-60% IMPRESSION: 1) NORMAL CONTRACTILITY OF THE LEFT VENTRICLE. 2) BORDERLINE CONCENTRIC LEFT VENTRICULAR HYPERTROPHY. 3) BORDERLINE LEFT ATRIAL DILATATION. 4) MILD LEFT VENTRICULAR DILATATION. 12/14 - Echo EF 55% Code(s): I50.9 - HEART FAILURE, UNSPECIFIED (6) History of deep venous thrombosis (DVT) of distal vein of left lower extremity Current Visit: Yes Status: Acute Assessment & Plan: -Previously on Xarelto - held due to severe epitaxis last week - consider resuming when hgb stable Code(s): Z86.718 - PERSONAL HISTORY OF OTHER VENOUS THROMBOSIS AND EMBOLISM (7) Morbid obesity with BMI of 40.0-44.9, adult Current Visit: No Status: Chronic Assessment & Plan: -BMI 45.6 - advised diet and exercise control Code(s): E66.01 - MORBID (SEVERE) OBESITY DUE TO EXCESS CALORIES; Z68.41 - BODY MASS INDEX [BMI] 40.0-44.9, ADULT (8) CAD (coronary artery disease) Current Visit: No Status: Chronic Assessment & Plan: - Continue Imdur, lasix, Code(s): I25.10 - ATHSCL HEART DISEASE OF [place] CORONARY ARTERY W/O ANG PCTRS (9) Depression Current Visit: No Status: Chronic Assessment & Plan: - Continue citalopram Code(s): F32.A - DEPRESSION, UNSPECIFIED (10) HTN (hypertension) Current Visit: No Status: Chronic Assessment & Plan: - Hypotensive in ED - hold BP meds for now - monitor closely - BP stable today Code(s): I10 - ESSENTIAL (PRIMARY) HYPERTENSION (11) History of CVA with residual deficit Current Visit: No Status: Chronic Assessment & Plan: - speech and language affected - Continue statin Code(s): I69.30 - UNSPECIFIED SEQUELAE OF CEREBRAL INFARCTION (12) Hyperlipidemia Current Visit: No Status: Chronic Assessment & Plan: -continue statin Code(s): E78.5 - HYPERLIPIDEMIA, UNSPECIFIED (13) Hypothyroidism Current Visit: No Status: Chronic Assessment & Plan: - TSH level is low, synthyroid dose reduced - will need to f/u op with recheck -CT chest w/ Suggestion of enlarged thyroid lobes showing hypodense nodules. - US thyroid 12/13 Enlarged left lobe measuring 5.0 x 2.3 x 2.0 cm. Right lobe within normal limits measuring 4.5 x 2.2 x 3.3 cm. Isthmus thickened measuring 1.3 cm. Thyroid parenchyma diffusely heterogeneous without abnormal hyperemic color flow. There are multiple heterogeneous solid nodules bilaterally, largest right midpole measuring 3.2 x 2.9 x 2.6 cm. No focal cyst. Impression: Sonographic features favor multinodular goiter. - Will need OP f/u with endocrinology Code(s): E03.9 - HYPOTHYROIDISM, UNSPECIFIED (14) Restless legs Current Visit: No Status: Chronic Assessment & Plan: - Continue ropinirole (15) Anxiety Current Visit: Yes Status: Acute Assessment & Plan: - continue xanax - placed on 2lNC as she felt SOB with anxiety per nursing- removed today Code(s): F41.9 - ANXIETY DISORDER, UNSPECIFIED - Discharge Discharge Date: 12/15/23 Disposition: Home, Self-Care Condition: Good Prescriptions: New Simvastatin 20Mg [Zocor 20Mg] 40 mg PO HS 30 Days #30 tablet Continue Amitriptyline HCl 25 mg [Amitriptyline 25 mg Tablet] 25 mg PO TID Cimetidine 300 mg PO BID Citalopram Hydrobromide 20 mg* [ceLEXa 20 MG] 40 mg PO DAILY PANTOPRAZOLE 40 mg Tablet [Protonix 40MG Tablet] 40 mg PO DAILY Ropinirole 2Mg [Requip 2Mg Tab] 2 mg PO QID Furosemide 40 mg [Lasix 40 MG] 40 mg PO DAILY Levothyroxine Sodium 25 Mcg [Synthroid 25 Mcg] 37.5 mcg PO DAILY Metoprolol Succinate 25 mg Xl* [Toprol-Xl 25MG Tablets] 25 mg PO DAILY Lisinopril 20 mg [Zestril 20 MG] 20 mg PO DAILY Ondansetron [Ondansetron Odt ] 4 mg PO Q8H PRN PRN PRN Reason: Nausea Hydrocodone/Acetaminophen [Hydrocodone-Acetamin 10-325 mg] 1 tab PO QID Lorazepam 0.5 mg [Ativan 0.5 MG] 0.5 mg PO Q4H PRN PRN PRN Reason: Anxiety Mirabegron [Myrbetriq] 50 mg PO DAILY Additional Instructions: Resume Xarelto- discuss risk vs. benefits with cardiology. Follow up with: [facility] [Primary Care Provider] -
[2023-12-15 12:22] VITALS: BP 134/76; PULSE 91; RESP 24; TEMP 96.9; O2SAT 97
== END 2023-12-15 15:08 | disposition home or self-care (01) ==
LOC: ED 12:34 → MED SURG 17:25
PROVIDERS: ADMIT Internal Medicine; ATTEND Internal Medicine
DX: R07.9 Chest pain, unspecified (principal); J96.01 Acute respiratory failure with hypoxia; I13.0 Hypertensive heart and chronic kidney disease with heart failure and stage 1 through stage 4 chronic kidney disease, or unspecified chronic kidney disease; N18.9 Chronic kidney disease, unspecified; I50.9 Heart failure, unspecified; N17.9 Acute kidney failure, unspecified; D64.9 Anemia, unspecified; Z86.718 Personal history of other venous thrombosis and embolism; E66.01 Morbid (severe) obesity due to excess calories; Z68.41 Body mass index [BMI] 40.0-44.9, adult; I25.10 Atherosclerotic heart disease of native coronary artery without angina pectoris; F32.A Depression, unspecified; I69.30 Unspecified sequelae of cerebral infarction; E78.5 Hyperlipidemia, unspecified; E03.9 Hypothyroidism, unspecified; G25.81 Restless legs syndrome; F41.9 Anxiety disorder, unspecified; I25.2 Old myocardial infarction; Z79.899 Other long term (current) drug therapy
CPT/HCPCS: 36000; 36415; 36430; 70450; 71045; 71250; 76536; 78582; 80053; 80061; 81001; 82607; 82728; 82746; 82805; 82947; 83036; 83540; 83550; 83605; 83721; 83735; 83880; 84443; 84484; 85025; 85027; 85379; 86850; 86900; 86901; 86922; 87040; 93005; 93041; 93268; 93306; 94640; 94760; 96374; 96375; 99285; A9540; A9567; J1200; J1940; J2405; J2919; P9016; Q3014; A9270-GY; G0378

== ENCOUNTER 2024-01-09 07:08 | Emergency (ER) | payer MEDICARE, OTHER ==
[2024-01-09 07:32] VITALS: TEMP 96.9
[2024-01-09 07:53] LABS: Absolute Neutrophil Ct (ANC) 2.95 x10^3/uL (1.56-6.13); BASOPHIL % 0.7 % (0.1-1.2); Basophil (Absolute #) 0.03 x10^3/uL (0.01-0.08); Eosinophil % 2.6 % (0.7-5.8); Eosinophil (Absolute #) 0.11 x10^3/uL (0.04-0.36); Hematocrit 32.7 % (34.1-44.9); Hemoglobin 9.2 g/dL (11.2-15.7); IMMATURE GRAN # 0.01 x10^3u/L (0.001-0.031); IMMATURE GRAN % 0.2 % (0.001-0.429); Lymphocyte (Absolute #) 0.84 x10^3/uL (1.18-3.74); Lymphocytes % 19.8 % (19.3-51.7); Mean Cell Volume 89.6 fL (79.4-94.8); Mean Corpuscular Hemoglobin 25.2 pg (25.6-32.2); Mean Corpuscular Hgb Concent. 28.1 g/dL (32.2-35.5); Mean Platelet Volume 12.5 fL (9.4-12.3); Monocytes % 7.1 % (4.7-12.5); Neutrophil % 69.6 % (34.0-71.1); Platelet Count 235 x10^3/uL (182-369); Red Blood Count 3.65 x10^6/uL (3.93-5.22); Red Cell Distribution Width 16.5 % (11.7-14.4); White Blood Count 4.2 x10^3/uL (3.98-10.04)
[2024-01-09 08:04] LABS: ALBUMIN 4.5 g/dL (3.5-5.0); ANION GAP 20.5 MEQ/L (5-15); BILIRUBIN,TOTAL 0.4 mg/dL (0.2-1.3); Calcium 9.3 mg/dL (8.4-10.2); Creatinine 1 4.01 mg/dL (0.52-1.04); MAGNESIUM 2.3 mg/dL (1.6-2.3)
[2024-01-09 08:05] LABS: INR 1.02 (0.8-3.0); PROTIME 11.1 SECONDS (9.4-12.5); PTT 52.3 SECONDS (25.1-36.5)
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
[2024-01-09 08:12] LABS: Potassium 6.8 mmol/L (3.5-5.1)
[2024-01-09 08:21] LABS: NT PRO BNPII 326 pg/mL (<300); TROPONIN < 0.012 ng/mL (0.000-0.033)
[2024-01-09] MEDS ORDERED: Kayexylate 15 GM/60 ML ONE ×2 (08:28→08:29)
[2024-01-09] MEDS ORDERED: Sodium Chloride 0.9% 1000 ML 1,000 ML ONE (08:28)
[2024-01-09] MEDS: Kayexylate 15 GM/60 ML PO ONE (08:30)
[2024-01-09] MEDS: Sodium Chloride 0.9% 1000 ML 1,000 ML IV STA (08:30)
[2024-01-09 08:32] LABS: Slide Review 1 YES
[2024-01-09] MEDS ORDERED: Calcium Gluconate 10% 1000 MG IV ONE (08:48)
[2024-01-09] MEDS ORDERED: SODIUM BICARBONATE 50 MEQ/50 ML ABBOJECT IV ONE (08:48)
[2024-01-09] MEDS: SODIUM BICARBONATE 50 MEQ/50 ML ABBOJECT IV ONE (08:49)
[2024-01-09] MEDS: Calcium Gluconate 10% 1000 MG IV ONE (08:49)
[2024-01-09 10:00] LABS: ALBUMIN 3.7 g/dL (3.5-5.0); ANION GAP 16.1 MEQ/L (5-15); BILIRUBIN,TOTAL 0.4 mg/dL (0.2-1.3); Creatinine 1 3.77 mg/dL (0.52-1.04); EST GLOMERULAR FILTRATION RATE 11.8 ML/MIN; Total Protein 6.9 g/dL (6.3-8.2)
[2024-01-09 11:05] VITALS: O2SAT 98
[2024-01-09 11:21] VITALS: BP 96/49; PULSE 81; RESP 16
== END 2024-01-09 11:25 | disposition home or self-care (01) ==
LOC: ED 07:08
DX: E87.5 Hyperkalemia (principal); N17.9 Acute kidney failure, unspecified; I13.2 Hypertensive heart and chronic kidney disease with heart failure and with stage 5 chronic kidney disease, or end stage renal disease; N18.5 Chronic kidney disease, stage 5; I50.9 Heart failure, unspecified; E78.5 Hyperlipidemia, unspecified; Z79.01 Long term (current) use of anticoagulants; Z79.891 Long term (current) use of opiate analgesic; Z79.899 Other long term (current) drug therapy
CPT/HCPCS: 36000; 36415; 80053; 83735; 83880; 84484; 85025; 85610; 85730; 93005; 93041; 96374; 96375; 99284; 99291; J0612; A9270-GY

== ENCOUNTER 2024-04-11 13:49 | Emergency (ER) | payer MEDICARE, OTHER ==
[2024-04-11 14:03] VITALS: TEMP 97.9
[2024-04-11] MEDS ORDERED: Sodium Chloride 0.9% 1000 ML 1,000 ML ONE (14:27)
[2024-04-11] MEDS ORDERED: Zofran 4 MG/2 ML VIAL ONE (14:27)
[2024-04-11] MEDS: Zofran 4 MG/2 ML VIAL IV ONE (14:30)
[2024-04-11] MEDS: Sodium Chloride 0.9% 1000 ML 1,000 ML IV STA (14:30)
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
[2024-04-11 14:36] LABS: BASOPHIL % 0.1 % (0.1-1.2); Basophil (Absolute #) 0.01 x10^3/uL (0.01-0.08); Eosinophil % 1.8 % (0.7-5.8); Eosinophil (Absolute #) 0.12 x10^3/uL (0.04-0.36); Hemoglobin 9.4 g/dL (11.2-15.7); IMMATURE GRAN # 0.07 x10^3u/L (0.001-0.031); Lymphocyte (Absolute #) 0.61 x10^3/uL (1.18-3.74); Mean Cell Volume 76.6 fL (79.4-94.8); Mean Corpuscular Hemoglobin 22.5 pg (25.6-32.2); Mean Corpuscular Hgb Concent. 29.4 g/dL (32.2-35.5); Monocyte (Absolute #) 0.75 x10^3/uL (0.24-0.86); Monocytes % 11.1 % (4.7-12.5); NUCLEATED RBC # 0.07 x10^3u/L (0.00-0.012); Platelet Count 83 x10^3/uL (182-369); Red Blood Count 4.18 x10^6/uL (3.93-5.22); Red Cell Distribution Width 18.5 % (11.7-14.4); White Blood Count 6.8 x10^3/uL (3.98-10.04)
[2024-04-11 14:50] LABS: Slide Review 1 YES
[2024-04-11 14:57] LABS: ALBUMIN 4.3 g/dL (3.5-5.0); ANION GAP 23.3 MEQ/L (5-15); BILIRUBIN,TOTAL 0.5 mg/dL (0.2-1.3); Calcium 10.1 mg/dL (8.4-10.2); Creatinine 1 5.23 mg/dL (0.52-1.04); EST GLOMERULAR FILTRATION RATE 7.9 ML/MIN; Total Protein 8.2 g/dL (6.3-8.2)
[2024-04-11 15:06] LABS: Potassium 6.5 mmol/L (3.5-5.1)
--- NOTE | 2024-04-11 15:08 | XRAY ---
Indication: Pneumonia. Comparison: December 13, 2023 Portable chest now demonstrates cardiomegaly and pulmonary edema without consolidation/large effusion. Also new left midlung subsegmental atelectasis/scarring. Bony thorax intact again with osteopenia, degenerative changes, and left pacemaker.
--- NOTE | 2024-04-11 15:10 | XRAY ---
Indication: Confusion. Altered mental status. Multiple contiguous axial images obtained through the head without contrast. Comparison: December 13, 2023 Again age-appropriate global atrophy, mild periventricular degenerative micro-ischemia, and remote lacunar infarct left basal ganglia. Also stable subcentimeter remote infarcts left thalamus and right mid periventricular. No acute intracranial hemorrhage, abnormal extra-axial fluid collection, or mass effect. Fourth ventricle is midline without hydrocephalus. Bony calvarium intact. Visualized paranasal sinuses and mastoid air cells are clear. Impression: Stable nonacute senile brain with multifocal remote infarcts as detailed.
--- NOTE | 2024-04-11 15:16 | XRAY ---
Indication: Blood in ostomy. Obstruction. Multiple contiguous axial images obtained through the abdomen and pelvis without contrast. Comparison: None Lung bases demonstrate cardiomegaly, pulmonary edema, and tiny right base calcified granuloma. Noncontrasted stomach and bowel loops appear nonobstructed. Total colectomy with unremarkable right periumbilical diverting ostomy. No free fluid/air. Remaining sigmoid stump demonstrates diverticulosis. No free fluid/air. Pelvis demonstrates multiseptated cystic mass measuring at least 9.6 x 9.9 x 9.6 cm. Uterus and gallbladder presumed surgically absent. Tiny bilateral renal cysts, largest right upper pole measuring 1 cm. Remaining liver, pancreas, spleen, adrenal glands, kidneys, ureters, and bladder are unremarkable for noncontrast exam. Extensive scattered arteriosclerotic calcifications including both renal arteries. Distal aortic ectasia up to 3.2 x 2.6 cm. Osseous structures intact with osteopenia, mild/moderate multilevel degenerative spondylosis, 7-8mm L4 anterolisthesis, and mild degenerative changes both hips. Impression: 1. Cardiomegaly with pulmonary edema. Rule out mild/early cardiac decompensation/CHF. Superimposed pneumonia not completely excluded. 2. Colectomy with unremarkable right periumbilical ostomy. 3. Large multiseptated pelvic cystic mass. Rule out ovarian cystic malignancy. 4. Chronic findings including sigmoid diverticulosis, bilateral renal cysts, arteriosclerotic disease, and chronic bony findings.
[2024-04-11 16:24] VITALS: RESP 18
[2024-04-11 18:34] VITALS: BP 105/58; PULSE 68; O2SAT 97
== END 2024-04-11 18:34 | disposition home or self-care (01) ==
LOC: ED 13:49
DX: N17.9 Acute kidney failure, unspecified (principal); E87.5 Hyperkalemia; K85.90 Acute pancreatitis without necrosis or infection, unspecified; N83.209 Unspecified ovarian cyst, unspecified side; R53.83 Other fatigue
CPT/HCPCS: 36415; 70450; 71045; 74176; 80053; 83690; 84484; 85025; 93005; 96360; 96374; 99284; 99291; J2405